=== PATIENT | male | born 1950 | race Caucasian/White ===

== ENCOUNTER 2018-09-02 12:23 | Inpatient (IN) | payer OTHER, MEDICARE ==
[2018-09-02] MEDS ORDERED: Sodium Chloride 0.9% 10 ML Syringe FLUSH PRN (12:42)
[2018-09-02] MEDS ORDERED: Ketorolac 30 MG/ML SDV IVPUSH ONE (12:44)
[2018-09-02] MEDS ORDERED: Sodium Chloride 0.9% 1,000 ML IV SCH (12:45)
--- NOTE | 2018-09-02 14:01 | CR ---
Chest: Two views of the chest were obtained. Comparison: No prior chest x-ray. Heart size and mediastinum are normal. Lungs are clear with no acute parenchymal change. Slight degenerative change is scattered within the spine. Impression: 1. Nothing acute is seen on two-view chest x-ray. Diagnostic code #2
[2018-09-02] MEDS ORDERED: cefTRIAXone 2 GM in Sodium Chloride 0.9% 100 ML IV ONE ×2 (15:08→15:22)
[2018-09-02] MEDS ORDERED: Sodium Chloride 0.9% 1,000 ML IV ONE (15:10)
--- NOTE | 2018-09-02 15:37 | EDM.PDOC ---
ED HPI GENERAL MEDICAL PROBLEM - General Chief Complaint: Fever Stated Complaint: SEPTIC FROM [facility] Time Seen by Provider: 09/02/18 12:35 Source of Information: Reports: Patient History Limitations: Reports: No Limitations - History of Present Illness INITIAL COMMENTS - FREE TEXT/NARRATIVE: The patient presents with fever, chills, shivering, dysuria, urgency and a cough. The cough was there a few days ago with a sore throat. He had a prostate biopsy done yesterday at [facility] in [place] by Dr French. He had cipro the day before, the day of the procedure and then today. 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 He had some body aches, chills, rigors and fever. He has some urgency and dysuria. He denies chest pain, shortness of breath, abdominal pain, nausea or vomiting. He has been exposed to viral URI by family but not influenza. Onset: Sudden Duration: Hour(s): Location: Reports: Generalized Quality: Reports: Ache Severity: Mild Improves with: Reports: None Worsens with: Reports: None Associated Symptoms: Reports: Cough, Fever/Chills. Denies: Chest Pain, Headaches, Nausea/Vomiting, Shortness of Breath - Related Data Allergies Allergy/AdvReac Type Severity Reaction Status Date / Time ivp dye Allergy Rash Uncoded 09/02/18 12:33 Home Meds: Home Meds Olmesartan Medoxomil 20 mg PO DAILY 09/02/18 [History] Rosuvastatin Calcium 1 dose PO DAILY 09/02/18 [History] Tamsulosin HCl 0.4 mg PO DAILY 09/02/18 [History] Timolol Maleate 1 applic EYEBOTH DAILY 09/02/18 [History] Past Medical History HEENT History: Reports: Impaired Vision Cardiovascular History: Reports: Hypertension Oncologic (Cancer) History: Reports: Prostate - Past Surgical History GI Surgical History: Reports: Appendectomy Male Surgical History: Reports: Prostate Biopsy Other Male Surgeries/Procedures: prostate cancer Social & Family History - Family History Family Medical History: Noncontributory - Tobacco Use Smoking Status *Q: Never Smoker - Caffeine Use Caffeine Use: Reports: Coffee - Recreational Drug Use Recreational Drug Use: No ED ROS GENERAL - Review of Systems Review Of Systems: See Below Constitutional: Reports: Fever, Chills, Malaise, Weakness, Fatigue HEENT: Reports: Throat Pain Respiratory: Reports: Cough. Denies: Shortness of Breath Cardiovascular: Reports: No Symptoms Endocrine: Reports: No Symptoms GI/Abdominal: Reports: No Symptoms : Reports: Dysuria, Urgency Musculoskeletal: Reports: Muscle Pain ED EXAM, SEPSIS - Physical Exam Exam: See Below Exam Limited By: No Limitations General Appearance: Alert, No Apparent Distress Ears: Normal External Exam Nose: Normal Inspection Throat/Mouth: Normal Inspection Head: Atraumatic, Normocephalic Neck: Normal Inspection, Supple, Non-Tender Respiratory/Chest: No Respiratory Distress, Lungs Clear, Normal Breath Sounds Cardiovascular: Regular Rate, Rhythm, No Edema, No Murmur GI/Abdominal Exam: Soft, Non-Tender, No Organomegaly, No Mass Extremities: Normal Inspection Neurological: Alert, Oriented, No Motor/Sensory Deficits Course - Vital Signs Last Recorded V/S: Last Vital Signs Temp 99.7 F 09/02/18 12:39 Pulse 106 H 09/02/18 12:25 Resp 18 09/02/18 12:25 BP 161/92 H 09/02/18 12:25 Pulse Ox 100 09/02/18 12:25 - Orders/Labs/Meds Orders: Active Orders 24 hr Category Date Time Status Patient Status [ADT] Routine ADT 09/02/18 15:56 Ordered Peripheral IV Care [RC] . DIRECTED Care 09/02/18 12:43 Active CULTURE BLOOD [BC] Stat Lab 09/02/18 13:14 Received CULTURE BLOOD [BC] Stat Lab 09/02/18 13:29 Received CULTURE URINE [RM] Stat Lab 09/02/18 14:59 Ordered Sodium Chloride 0.9% [Normal Saline] 1,000 ml Med 09/02/18 12:45 Active IV ASDIRECTED Sodium Chloride 0.9% [Normal Saline] 1,000 ml Med 09/02/18 15:10 Active IV ONETIME Sodium Chloride 0.9% [Saline Flush] Med 09/02/18 12:42 Active 10 ml FLUSH ASDIRECTED PRN Blood Culture x2 Reflex Set [OM.PC] Stat Oth 09/02/18 12:42 Ordered Peripheral IV Insertion Adult [OM.PC] Stat Oth 09/02/18 12:42 Ordered Medication Orders Sodium Chloride (Normal Saline) 1,000 mls @ 1,000 mls/hr IV ASDIRECTED LORI Last Admin: 09/02/18 13:19 Dose: 1,000 mls/hr Sodium Chloride (Normal Saline) 1,000 mls @ 200 mls/hr IV ONETIME ONE Stop: 09/02/18 20:09 Last Admin: 09/02/18 15:26 Dose: 200 mls/hr Sodium Chloride (Saline Flush) 10 ml FLUSH ASDIRECTED PRN PRN Reason: Keep Vein Open Last Admin: 09/02/18 13:19 Dose: 10 ml Labs: Laboratory Tests 09/02/18 09/02/18 09/02/18 Range/Units 13:14 13:14 13:14 WBC 7.34 (4.23-9.07) K/mm3 RBC 4.45 L (4.63-6.08) M/mm3 Hgb 14.6 (13.7-17.5) gm/L Hct 42.0 (40.1-51.0) % MCV 94.4 H (79.0-92.2) fl MCH 32.8 H (25.7-32.2) pg MCHC 34.8 (32.2-35.5) g/dl RDW Std Deviation 42.1 (35.1-43.9) fL Plt Count 135 L (163-337) K/mm3 MPV 9.4 (9.4-12.3) fl Neut % (Auto) 89.6 H (34.0-67.9) % Lymph % (Auto) 5.7 L (21.8-53.1) % Benzie % (Auto) 2.0 L (5.3-12.2) % Eos % (Auto) 2.6 (0.8-7.0) Baso % (Auto) 0.1 (0.1-1.2) % Neut # (Auto) 6.57 H (1.78-5.38) K/mm3 Lymph # (Auto) 0.42 L (1.32-3.57) K/mm3 Benzie # (Auto) 0.15 L (0.30-0.82) K/mm3 Eos # (Auto) 0.19 (0.04-0.54) K/mm3 Baso # (Auto) 0.01 (0.01-0.08) K/mm3 Sodium 138 (136-145) mEq/L Potassium 4.3 (3.5-5.1) mEq/L Chloride 103 (98-107) mEq/L Carbon Dioxide 26 (21-32) mEq/L Anion Gap 13.3 (5-15) BUN 16 (7-18) mg/dL Creatinine 1.2 (0.7-1.3) mg/dL Est Cr Clr Drug Dosing 61.01 mL/min Estimated GFR (MDRD) 60 (>60) mL/min BUN/Creatinine Ratio 13.3 L (14-18) Glucose 93 (80-115) mg/dL Lactic Acid 2.1 H (0.4-2.0) mmol/L Calcium 9.0 (8.5-10.1) mg/dL Total Bilirubin 0.6 (0.2-1.0) mg/dL AST 22 (15-37) U/L ALT 25 (16-63) U/L Alkaline Phosphatase 51 (46-116) U/L C-Reactive Protein (<1.0) mg/dL Total Protein 7.4 (6.4-8.2) g/dl Albumin 3.8 (3.4-5.0) g/dl Globulin 3.6 gm/dL Albumin/Globulin Ratio 1.1 (1-2) Urine Color (Yellow) Urine Appearance (Clear) Urine pH (5.0-8.0) Ur Specific [place] (1.005-1.030) Urine Protein (Negative) Urine Glucose (UA) (Negative) Urine Ketones (Negative) Urine Occult Blood (Negative) Urine Nitrite (Negative) Urine Bilirubin (Negative) Urine Urobilinogen (0.2-1.0) Ur Leukocyte Esterase (Negative) Urine RBC (0-5) /hpf Urine WBC (0-5) /hpf Ur Epithelial Cells (0-5) /hpf Urine Bacteria (FEW) /hpf Urine Mucus (FEW) /hpf 09/02/18 09/02/18 Range/Units 13:14 13:59 WBC (4.23-9.07) K/mm3 RBC (4.63-6.08) M/mm3 Hgb (13.7-17.5) gm/L Hct (40.1-51.0) % MCV (79.0-92.2) fl MCH (25.7-32.2) pg MCHC (32.2-35.5) g/dl RDW Std Deviation (35.1-43.9) fL Plt Count (163-337) K/mm3 MPV (9.4-12.3) fl Neut % (Auto) (34.0-67.9) % Lymph % (Auto) (21.8-53.1) % Benzie % (Auto) (5.3-12.2) % Eos % (Auto) (0.8-7.0) Baso % (Auto) (0.1-1.2) % Neut # (Auto) (1.78-5.38) K/mm3 Lymph # (Auto) (1.32-3.57) K/mm3 Benzie # (Auto) (0.30-0.82) K/mm3 Eos # (Auto) (0.04-0.54) K/mm3 Baso # (Auto) (0.01-0.08) K/mm3 Sodium (136-145) mEq/L Potassium (3.5-5.1) mEq/L Chloride (98-107) mEq/L Carbon Dioxide (21-32) mEq/L Anion Gap (5-15) BUN (7-18) mg/dL Creatinine (0.7-1.3) mg/dL Est Cr Clr Drug Dosing mL/min Estimated GFR (MDRD) (>60) mL/min BUN/Creatinine Ratio (14-18) Glucose (80-115) mg/dL Lactic Acid (0.4-2.0) mmol/L Calcium (8.5-10.1) mg/dL Total Bilirubin (0.2-1.0) mg/dL AST (15-37) U/L ALT (16-63) U/L Alkaline Phosphatase (46-116) U/L C-Reactive Protein 1.1 H* (<1.0) mg/dL Total Protein (6.4-8.2) g/dl Albumin (3.4-5.0) g/dl Globulin gm/dL Albumin/Globulin Ratio (1-2) Urine Color Yellow (Yellow) Urine Appearance Clear (Clear) Urine pH 7.0 (5.0-8.0) Ur Specific [place] 1.015 (1.005-1.030) Urine Protein Trace H (Negative) Urine Glucose (UA) Negative (Negative) Urine Ketones Negative (Negative) Urine Occult Blood 2+ H (Negative) Urine Nitrite Negative (Negative) Urine Bilirubin Negative (Negative) Urine Urobilinogen 0.2 (0.2-1.0) Ur Leukocyte Esterase Trace H (Negative) Urine RBC 10-20 H (0-5) /hpf Urine WBC 10-20 H (0-5) /hpf Ur Epithelial Cells 0-5 (0-5) /hpf Urine Bacteria Few (FEW) /hpf Urine Mucus Not seen (FEW) /hpf Meds: Medications Generic Name Dose Route Start Last Admin Trade Name Freq PRN Reason Stop Dose Admin Sodium Chloride 1,000 mls @ 1,000 mls/hr 09/02/18 12:45 09/02/18 13:19 Normal Saline IV 1,000 mls/hr ASDIRECTED LORI Administration Sodium Chloride 1,000 mls @ 200 mls/hr 09/02/18 15:10 09/02/18 15:26 Normal Saline IV 09/02/18 20:09 200 mls/hr ONETIME ONE Administration Sodium Chloride 10 ml 09/02/18 12:42 09/02/18 13:19 Saline Flush FLUSH 10 ml ASDIRECTED PRN Administration Keep Vein Open Discontinued Medications Generic Name Dose Route Start Last Admin Trade Name Freq PRN Reason Stop Dose Admin Ceftriaxone Sodium 2 gm/ 100 mls @ 200 mls/hr 09/02/18 15:08 Sodium Chloride IV 09/02/18 15:37 ONETIME ONE Ceftriaxone Sodium 2 gm/ 100 mls @ 200 mls/hr 09/02/18 15:22 09/02/18 15:27 Sodium Chloride IV 09/02/18 15:51 200 mls/hr ONETIME ONE Administration Ketorolac Tromethamine 30 mg 09/02/18 12:44 09/02/18 13:20 Toradol IVPUSH 09/02/18 12:45 30 mg ONETIME ONE Administration - Re-Assessments/Exams Free Text/Narrative Re-Assessment/Exam: 09/02/18 15:37 I ordered an IV NS 1L bolus, blood cultures, UA, labs, CXR, influenza and toradol 30mg IV. His CXR looks good. His WBC is normal at 7.34 but he does have a predominance of neutrophils at 89.6%. His CRP was elevated at 1.1. His lactic acid was elevated at 2.1. His UA shows a possible UTI. I have ordered a urine culture. I also ordered rocephin 2 grams IV. His influenza was negative. I feel he needs to be admitted. His lactic acid is slightly elevated at 2.1. I will give him more fluids and I will recheck the lactic acid. I called Dr Lamb and she agreed to the admission. Dr Lamb wanted me to call the urologist and see what he recommends. I called [facility] and talked with the urologist semiconductor technician Dr Blackmon and he did agree with the rocephin. The patient had cipro and it is curious he still got an infection. Departure - Departure Time of Disposition: 15:45 Disposition: Admitted As Inpatient 64 Condition: Fair Clinical Impression: Acute prostatitis UTI (urinary tract infection) Qualifiers: Urinary tract infection type: site unspecified Hematuria presence: without hematuria Qualified Code(s): N39.0 - Urinary tract infection, site not specified - Discharge Information Referrals: Reese Gay MD [Primary Care Provider] - Forms: ED Department Discharge - My Orders Last 24 Hours: My Active Orders 09/02/18 12:42 Sodium Chloride 0.9% [Saline Flush] 10 ml FLUSH ASDIRECTED PRN Blood Culture x2 Reflex Set [OM.PC] Stat Peripheral IV Insertion Adult [OM.PC] Stat 09/02/18 12:43 Peripheral IV Care [RC] . DIRECTED 09/02/18 12:45 Sodium Chloride 0.9% [Normal Saline] 1,000 ml IV ASDIRECTED 09/02/18 13:14 CULTURE BLOOD [BC] Stat 09/02/18 13:29 CULTURE BLOOD [BC] Stat 09/02/18 14:59 CULTURE URINE [RM] Stat 09/02/18 15:10 Sodium Chloride 0.9% [Normal Saline] 1,000 ml IV ONETIME 09/02/18 15:56 Patient Status [ADT] Routine - Assessment/Plan Last 24 Hours: My Active Orders 09/02/18 12:42 Sodium Chloride 0.9% [Saline Flush] 10 ml FLUSH ASDIRECTED PRN Blood Culture x2 Reflex Set [OM.PC] Stat Peripheral IV Insertion Adult [OM.PC] Stat 09/02/18 12:43 Peripheral IV Care [RC] . DIRECTED 09/02/18 12:45 Sodium Chloride 0.9% [Normal Saline] 1,000 ml IV ASDIRECTED 09/02/18 13:14 CULTURE BLOOD [BC] Stat 09/02/18 13:29 CULTURE BLOOD [BC] Stat 09/02/18 14:59 CULTURE URINE [RM] Stat 09/02/18 15:10 Sodium Chloride 0.9% [Normal Saline] 1,000 ml IV ONETIME 09/02/18 15:56 Patient Status [ADT] Routine
[2018-09-02] MEDS ORDERED: Ondansetron 4 MG Tab.DIS PO PRN (16:34)
[2018-09-02] MEDS ORDERED: Ketorolac 30 MG/ML SDV IV PRN (16:34)
[2018-09-02] MEDS ORDERED: Ondansetron 4 MG/2 ML SDV IV PRN (16:34)
[2018-09-02] MEDS ORDERED: Albuterol 0.083% 2.5 MG/3 ML Neb Soln NEB PRN (16:34)
[2018-09-02] MEDS ORDERED: Bisacodyl 5 MG Tab PO PRN (16:40)
[2018-09-02] MEDS ORDERED: Polyethylene Glycol 3350 Powder 17 GM Packet PO PRN (16:40)
[2018-09-02] MEDS ORDERED: Magnesium Hydroxide 400 MG/5 ML Susp 30 ML Cup PO PRN (16:40)
[2018-09-02] MEDS ORDERED: Docusate Sodium 100 MG Cap PO PRN (16:40)
[2018-09-02] MEDS ORDERED: Temazepam 7.5 MG Cap PO PRN (16:40)
[2018-09-02] MEDS ORDERED: Benzonatate 100 MG Cap PO PRN (16:41)
[2018-09-02] MEDS ORDERED: hydrALAZINE 20 MG/ML SDV IVPUSH PRN (16:42)
[2018-09-02] MEDS ORDERED: Metoprolol Tartrate 5 MG/5 ML SDV IVPUSH PRN (16:42)
--- NOTE | 2018-09-02 17:16 | PCM.HP ---
H&P History of Present Illness - General Date of Service: 09/02/18 Admit Problem/Dx: Admission Diagnosis/Problem Admission Diagnosis/Problem UTI, Urinary tract infectious disease Source of Information: Patient, Provider History Limitations: Reports: No Limitations - History of Present Illness Initial Comments - Free Text/Narative: This is a 68 yo male with past medical h/o who comes in for acute prostatitis and possible UTI. Pt c/o F/C, body aches, dysuria/urgency, cough and sore throat x 3 days. He denies EPPS, dizziness, CP, shortness of breath, abdominal pain, N/V/D, or other GI/ complaints. Does have sick contacts with viral URI but not influenza. He had a prostate biopsy done yesterday at [facility] in [place] by Dr French. He had Cipro the day before, the day of the procedure and then today. His initial workup in the ED shows a CBC remarkable for RBC 4.45, MCV 94.4, MCH 32.8, Plt 135, Neut 89.6%, lymph 5.7%, [place] 2%. His chemistry is remarkable for LA 2.1, CRP 1.1. UTI suspicious for UTI. Urine culture pending. CXR shows nothing acute. Influenza negative. He is subsequently admitted to the medical floor. He is a Full Code. PCP is Dr. Fernandez. - Related Data Allergies/Adverse Reactions: Allergies Allergy/AdvReac Type Severity Reaction Status Date / Time ivp dye Allergy Rash Uncoded 09/02/18 17:01 Home Medications: Home Meds Olmesartan Medoxomil 20 mg PO DAILY 09/02/18 [History] Rosuvastatin Calcium 1 dose PO DAILY 09/02/18 [History] Tamsulosin HCl 0.4 mg PO DAILY 09/02/18 [History] Timolol Maleate 1 applic EYEBOTH DAILY 09/02/18 [History] Past Medical History HEENT History: Reports: Impaired Vision Cardiovascular History: Reports: Hypertension Oncologic (Cancer) History: Reports: Prostate - Past Surgical History GI Surgical History: Reports: Appendectomy Male Surgical History: Reports: Prostate Biopsy Other Male Surgeries/Procedures: prostate cancer Social & Family History - Family History Family Medical History: Noncontributory - Tobacco Use Smoking Status *Q: Never Smoker - Caffeine Use Caffeine Use: Reports: Coffee - Recreational Drug Use Recreational Drug Use: No H&P Review of Systems - Review of Systems: Review Of Systems: See Below General: Reports: Fever, Chills, Malaise, Weakness, Fatigue HEENT: Reports: Sore Throat Pulmonary: Reports: Cough. Denies: Shortness of Breath, Sputum Cardiovascular: Reports: Blood Pressure Problem. Denies: Chest Pain Gastrointestinal: Reports: No Symptoms. Denies: Abdominal Pain, Diarrhea, Nausea, Vomiting Genitourinary: Reports: Dysuria, Urgency. Denies: Frequency, Hematuria Musculoskeletal: Reports: Muscle Pain Skin: Reports: No Symptoms Psychiatric: Reports: No Symptoms Neurological: Reports: No Symptoms Hematologic/Lymphatic: Reports: No Symptoms Immunologic: Reports: No Symptoms Exam - Exam Exam: See Below - Vital Signs Vital Signs: Last Vital Signs Temp 99.7 F 09/02/18 12:39 Pulse 99 09/02/18 16:50 Resp 16 09/02/18 16:50 BP 146/81 H 09/02/18 16:50 Pulse Ox 98 09/02/18 16:50 Weight: 219 lb - Exam Quality Assessment: DVT Prophylaxis General: Alert, Oriented, Cooperative, Mild Distress HEENT: Conjunctiva Clear, EACs Clear, EOMI, Hearing Intact, Mucosa Moist & [place] , Nares Patent, Normal Nasal Septum, Posterior Pharynx Clear, PERRLA Neck: Supple, Trachea Midline, 2 Lungs: Clear to Auscultation, Normal Respiratory Effort Cardiovascular: Regular Rate, Regular Rhythm GI/Abdominal Exam: Normal Bowel Sounds, Soft, Non-Tender, No Organomegaly, No Distention, No Abnormal Bruit, No Mass, Pelvis Stable (Male) Exam: Deferred Rectal (Males) Exam: Deferred Back Exam: Normal Inspection Extremities: Normal Inspection, Normal Range of Motion, Non-Tender, No Pedal Edema, Normal Capillary Refill Peripheral Pulses: 3+: Posterior Tibial (L), Posterior Tibial (R), Dorsalis Pedis (L), Dorsalis Pedis (R) Skin: Warm, Dry, Intact Neurological: Cranial Nerves Intact (grossly) Psychiatric: Alert, Normal Affect, Normal Mood - Patient Data Lab Results Last 24 hrs: Laboratory Results - last 24 hr 09/02/18 09/02/18 09/02/18 Range/Units 13:14 13:14 13:14 WBC 7.34 (4.23-9.07) K/mm3 RBC 4.45 L (4.63-6.08) M/mm3 Hgb 14.6 (13.7-17.5) gm/L Hct 42.0 (40.1-51.0) % MCV 94.4 H (79.0-92.2) fl MCH 32.8 H (25.7-32.2) pg MCHC 34.8 (32.2-35.5) g/dl RDW Std Deviation 42.1 (35.1-43.9) fL Plt Count 135 L (163-337) K/mm3 MPV 9.4 (9.4-12.3) fl Neut % (Auto) 89.6 H (34.0-67.9) % Lymph % (Auto) 5.7 L (21.8-53.1) % [place] % (Auto) 2.0 L (5.3-12.2) % Eos % (Auto) 2.6 (0.8-7.0) Baso % (Auto) 0.1 (0.1-1.2) % Neut # (Auto) 6.57 H (1.78-5.38) K/mm3 Lymph # (Auto) 0.42 L (1.32-3.57) K/mm3 [place] # (Auto) 0.15 L (0.30-0.82) K/mm3 Eos # (Auto) 0.19 (0.04-0.54) K/mm3 Baso # (Auto) 0.01 (0.01-0.08) K/mm3 Sodium 138 (136-145) mEq/L Potassium 4.3 (3.5-5.1) mEq/L Chloride 103 (98-107) mEq/L Carbon Dioxide 26 (21-32) mEq/L Anion Gap 13.3 (5-15) BUN 16 (7-18) mg/dL Creatinine 1.2 (0.7-1.3) mg/dL Est Cr Clr Drug Dosing 61.01 mL/min Estimated GFR (MDRD) 60 (>60) mL/min BUN/Creatinine Ratio 13.3 L (14-18) Glucose 93 (80-115) mg/dL Lactic Acid 2.1 H (0.4-2.0) mmol/L Calcium 9.0 (8.5-10.1) mg/dL Total Bilirubin 0.6 (0.2-1.0) mg/dL AST 22 (15-37) U/L ALT 25 (16-63) U/L Alkaline Phosphatase 51 (46-116) U/L C-Reactive Protein (<1.0) mg/dL Total Protein 7.4 (6.4-8.2) g/dl Albumin 3.8 (3.4-5.0) g/dl Globulin 3.6 gm/dL Albumin/Globulin Ratio 1.1 (1-2) Urine Color (Yellow) Urine Appearance (Clear) Urine pH (5.0-8.0) Ur Specific [place] (1.005-1.030) Urine Protein (Negative) Urine Glucose (UA) (Negative) Urine Ketones (Negative) Urine Occult Blood (Negative) Urine Nitrite (Negative) Urine Bilirubin (Negative) Urine Urobilinogen (0.2-1.0) Ur Leukocyte Esterase (Negative) Urine RBC (0-5) /hpf Urine WBC (0-5) /hpf Ur Epithelial Cells (0-5) /hpf Urine Bacteria (FEW) /hpf Urine Mucus (FEW) /hpf 09/02/18 09/02/18 Range/Units 13:14 13:59 WBC (4.23-9.07) K/mm3 RBC (4.63-6.08) M/mm3 Hgb (13.7-17.5) gm/L Hct (40.1-51.0) % MCV (79.0-92.2) fl MCH (25.7-32.2) pg MCHC (32.2-35.5) g/dl RDW Std Deviation (35.1-43.9) fL Plt Count (163-337) K/mm3 MPV (9.4-12.3) fl Neut % (Auto) (34.0-67.9) % Lymph % (Auto) (21.8-53.1) % [place] % (Auto) (5.3-12.2) % Eos % (Auto) (0.8-7.0) Baso % (Auto) (0.1-1.2) % Neut # (Auto) (1.78-5.38) K/mm3 Lymph # (Auto) (1.32-3.57) K/mm3 [place] # (Auto) (0.30-0.82) K/mm3 Eos # (Auto) (0.04-0.54) K/mm3 Baso # (Auto) (0.01-0.08) K/mm3 Sodium (136-145) mEq/L Potassium (3.5-5.1) mEq/L Chloride (98-107) mEq/L Carbon Dioxide (21-32) mEq/L Anion Gap (5-15) BUN (7-18) mg/dL Creatinine (0.7-1.3) mg/dL Est Cr Clr Drug Dosing mL/min Estimated GFR (MDRD) (>60) mL/min BUN/Creatinine Ratio (14-18) Glucose (80-115) mg/dL Lactic Acid (0.4-2.0) mmol/L Calcium (8.5-10.1) mg/dL Total Bilirubin (0.2-1.0) mg/dL AST (15-37) U/L ALT (16-63) U/L Alkaline Phosphatase (46-116) U/L C-Reactive Protein 1.1 H* (<1.0) mg/dL Total Protein (6.4-8.2) g/dl Albumin (3.4-5.0) g/dl Globulin gm/dL Albumin/Globulin Ratio (1-2) Urine Color Yellow (Yellow) Urine Appearance Clear (Clear) Urine pH 7.0 (5.0-8.0) Ur Specific [place] 1.015 (1.005-1.030) Urine Protein Trace H (Negative) Urine Glucose (UA) Negative (Negative) Urine Ketones Negative (Negative) Urine Occult Blood 2+ H (Negative) Urine Nitrite Negative (Negative) Urine Bilirubin Negative (Negative) Urine Urobilinogen 0.2 (0.2-1.0) Ur Leukocyte Esterase Trace H (Negative) Urine RBC 10-20 H (0-5) /hpf Urine WBC 10-20 H (0-5) /hpf Ur Epithelial Cells 0-5 (0-5) /hpf Urine Bacteria Few (FEW) /hpf Urine Mucus Not seen (FEW) /hpf Result Diagrams: 09/02/18 13:14 09/02/18 13:14 Anshu Results Last 24 hrs: Microbiology 09/02/18 12:30 Influenza Type A Antigen Screen - Final Nasal, Unspecified NEGATIVE INFLUENZA A VIRUS AG Influenza Type B Antigen Screen - Final NEGATIVE INFLUENZA B VIRUS AG - Problem List (1) Acute prostatitis SNOMED Code(s): 02408976 ICD Code: N41.0 - ACUTE PROSTATITIS Status: Acute Priority: High Current Visit: Yes (2) UTI (urinary tract infection) SNOMED Code(s): 58711776 ICD Code: N39.0 - URINARY TRACT INFECTION, SITE NOT SPECIFIED Status: Acute Priority: High Current Visit: Yes Qualifiers: Urinary tract infection type: site unspecified Hematuria presence: without hematuria Qualified Code(s): N39.0 - Urinary tract infection, site not specified Problem List Initiated/Reviewed/Updated: Yes Orders Last 24hrs: Active Orders 24 hr Category Date Time Status Patient Status [ADT] Routine ADT 09/02/18 15:56 Active Height and Weight [RC] DAILY Care 09/02/18 16:34 Active Intake and Output [RC] QSHIFT Care 09/02/18 16:34 Active May Shower [RC] ASDIRECTED Care 09/02/18 16:34 Active Oxygen Therapy [RC] PRN Care 09/02/18 16:34 Active Peripheral IV Care [RC] . DIRECTED Care 09/02/18 12:43 Active RT Aerosol Therapy [RC] ASDIRECTED Care 09/02/18 16:36 Active Up ad Nolvia [RC] ASDIRECTED Care 09/02/18 16:34 Active VTE/DVT Education [RC] PER UNIT ROUTINE Care 09/02/18 16:34 Active Vital Signs [RC] Q4H Care 09/02/18 16:34 Active OT Evaluation and Treatment [CONS] Routine Cons 09/02/18 16:34 Active PT Evaluation and Treatment [CONS] Routine Cons 09/02/18 16:34 Active Heart Healthy Diet [DIET] Diet 09/02/18 Dinner Active BASIC METABOLIC PANEL,BMP [CHEM] AM Lab 09/03/18 05:11 Ordered BASIC METABOLIC PANEL,BMP [CHEM] AM Lab 09/04/18 05:11 Ordered BASIC METABOLIC PANEL,BMP [CHEM] AM Lab 09/05/18 05:11 Ordered BASIC METABOLIC PANEL,BMP [CHEM] AM Lab 09/06/18 05:11 Ordered BASIC METABOLIC PANEL,BMP [CHEM] AM Lab 09/07/18 05:11 Ordered C-REACTIVE PROTEIN [CHEM] AM Lab 09/03/18 05:11 Ordered C-REACTIVE PROTEIN [CHEM] AM Lab 09/04/18 05:11 Ordered C-REACTIVE PROTEIN [CHEM] AM Lab 09/05/18 05:11 Ordered C-REACTIVE PROTEIN [CHEM] AM Lab 09/06/18 05:11 Ordered C-REACTIVE PROTEIN [CHEM] AM Lab 09/07/18 05:11 Ordered CBC WITH AUTO DIFF [HEME] AM Lab 09/03/18 05:11 Ordered CBC WITH AUTO DIFF [HEME] AM Lab 09/04/18 05:11 Ordered CBC WITH AUTO DIFF [HEME] AM Lab 09/05/18 05:11 Ordered CBC WITH AUTO DIFF [HEME] AM Lab 09/06/18 05:11 Ordered CBC WITH AUTO DIFF [HEME] AM Lab 09/07/18 05:11 Ordered CULTURE BLOOD [BC] Stat Lab 09/02/18 13:14 Received CULTURE BLOOD [BC] Stat Lab 09/02/18 13:29 Received CULTURE URINE [RM] Stat Lab 09/02/18 13:59 Received LACTIC ACID [CHEM] Routine Lab 09/02/18 17:15 Ordered MAGNESIUM [CHEM] AM Lab 09/03/18 05:11 Ordered MAGNESIUM [CHEM] AM Lab 09/04/18 05:11 Ordered MAGNESIUM [CHEM] AM Lab 09/05/18 05:11 Ordered MAGNESIUM [CHEM] AM Lab 09/06/18 05:11 Ordered MAGNESIUM [CHEM] AM Lab 09/07/18 05:11 Ordered MYCOPLASMA PNEUMONIAE IGM AB [CHEM] Stat Lab 09/02/18 13:14 Received Acetaminophen [Tylenol] Med 09/02/18 16:34 Active 650 mg PO Q4H PRN Albuterol [Proventil Neb Soln] Med 09/02/18 16:34 Active 2.5 mg NEB Q2H PRN Albuterol/Ipratropium [DuoNeb 3.0-0.5 MG/3 ML] Med 09/02/18 16:34 Active 3 ml NEB Q4H PRN Benzonatate [Tessalon Perles] Med 09/02/18 16:41 Active 200 mg PO TID PRN Bisacodyl [Dulcolax] Med 09/02/18 16:40 Active 5 mg PO DAILY PRN Docusate Sodium [Colace] Med 09/02/18 16:40 Active 100 mg PO BID PRN Docusate Sodium/Sennosides [Senna Plus] Med 09/02/18 16:40 Active 1 tab PO BID PRN Enoxaparin [Lovenox] Med 09/03/18 09:00 Active 40 mg SUBCUT DAILY Ketorolac [Toradol] Med 09/02/18 16:34 Active 30 mg IV Q6H PRN Losartan [Cozaar] Med 09/03/18 09:00 Active 50 mg PO DAILY Magnesium Hydroxide [Milk of Magnesia] Med 09/02/18 16:40 Active 30 ml PO Q12H PRN Metoprolol Tartrate [Lopressor] Med 09/02/18 16:42 Active 5 mg IVPUSH Q4H PRN Ondansetron [Zofran ODT] Med 09/02/18 16:34 Active 4 mg PO Q4H PRN Ondansetron [Zofran] Med 09/02/18 16:34 Active 4 mg IV Q4H PRN Polyethylene Glycol 3350 [MiraLAX] Med 09/02/18 16:40 Active 17 gm PO DAILY PRN Rosuvastatin [Crestor] Med 09/03/18 09:00 Active 10 mg PO DAILY Saccharomyces Boulardii [Florastor] Med 09/02/18 21:00 Active 250 mg PO BID Sodium Chloride 0.9% [Normal Saline] 1,000 ml Med 09/02/18 12:45 Active IV ASDIRECTED Sodium Chloride 0.9% [Normal Saline] 1,000 ml Med 09/02/18 15:10 Active IV ONETIME Sodium Chloride 0.9% [Saline Flush] Med 09/02/18 12:42 Active 10 ml FLUSH ASDIRECTED PRN Tamsulosin [Flomax] Med 09/03/18 09:00 Active 0.4 mg PO DAILY Temazepam [Restoril] Med 09/02/18 16:40 Active 7.5 mg PO BEDTIME PRN Timolol Maleate [Timoptic 0.5% Ophth Soln] Med 09/03/18 09:00 Active 0 ml EYEBOTH DAILY cefTRIAXone [Rocephin] 2 gm Med 09/03/18 09:00 Active Sodium Chloride 0.9% [Normal Saline] 100 ml IV Q24H hydrALAZINE [Apresoline] Med 09/02/18 16:42 Active 10 mg IVPUSH Q4H PRN Blood Culture x2 Reflex Set [OM.PC] Stat Oth 09/02/18 12:42 Ordered Peripheral IV Insertion Adult [OM.PC] Stat Ot 09/02/18 12:42 Ordered Medication Orders Acetaminophen (Tylenol) 650 mg PO Q4H PRN PRN Reason: Pain (Mild 1-3)/fever Albuterol (Proventil Neb Soln) 2.5 mg NEB Q2H PRN PRN Reason: Shortness Of Breath/wheezing Albuterol/Ipratropium (Duoneb 3.0-0.5 Mg/3 Ml) 3 ml NEB Q4H PRN PRN Reason: Shortness Of Breath/wheezing Benzonatate (Tessalon Perles) 200 mg PO TID PRN PRN Reason: Cough Bisacodyl (Dulcolax) 5 mg PO DAILY PRN PRN Reason: Constipation Docusate Sodium (Colace) 100 mg PO BID PRN PRN Reason: Constipation Enoxaparin Sodium (Lovenox) 40 mg SUBCUT DAILY [facility] Hydralazine HCl (Apresoline) 10 mg IVPUSH Q4H PRN PRN Reason: Hypertension Sodium Chloride (Normal Saline) 1,000 mls @ 1,000 mls/hr IV ASDIRECTED [facility] Last Admin: 09/02/18 13:19 Dose: 1,000 mls/hr Sodium Chloride (Normal Saline) 1,000 mls @ 200 mls/hr IV ONETIME ONE Stop: 09/02/18 20:09 Last Admin: 09/02/18 15:26 Dose: 200 mls/hr Ceftriaxone Sodium 2 gm/ (Sodium Chloride) 100 mls @ 200 mls/hr IV Q24H [facility] Ketorolac Tromethamine (Toradol) 30 mg IV Q6H PRN PRN Reason: Pain (moderate 4-6) Losartan Potassium (Cozaar) 50 mg PO DAILY [facility] Magnesium Hydroxide (Milk Of Magnesia) 30 ml PO Q12H PRN PRN Reason: Constipation Metoprolol Tartrate (Lopressor) 5 mg IVPUSH Q4H PRN PRN Reason: Tachycardia Ondansetron HCl (Zofran Odt) 4 mg PO Q4H PRN PRN Reason: nausea, able to take PO Ondansetron HCl (Zofran) 4 mg IV Q4H PRN PRN Reason: Nausea/Vomiting Polyethylene Glycol (Miralax) 17 gm PO DAILY PRN PRN Reason: Constipation Rosuvastatin Calcium (Crestor) 10 mg PO DAILY [facility] Saccharomyces Boulardii (Florastor) 250 mg PO BID [facility] Senna/Docusate Sodium (Senna Plus) 1 tab PO BID PRN PRN Reason: Constipation Sodium Chloride (Saline Flush) 10 ml FLUSH ASDIRECTED PRN PRN Reason: Keep Vein Open Last Admin: 09/02/18 13:19 Dose: 10 ml Tamsulosin HCl (Flomax) 0.4 mg PO DAILY [facility] Temazepam (Restoril) 7.5 mg PO BEDTIME PRN PRN Reason: Sleep Timolol Maleate (Timoptic 0.5% Ophth Soln) 0 ml EYEBOTH DAILY [facility] Assessment/Plan Comment:: Assessment/Plan: Acute: Acute Prostatitis * F/C, Dysuria/urgency * Risk factor: He had a prostate biopsy done yesterday at [facility] in [place] by Dr French, h/o Prostate CA * However, he had Cipro the day before, the day of the procedure and then today * No leukocytosis, CRP 1.1 * Consulted Urologist operational intelligence analyst Dr. Blackmon at [facility] in ED: * Rocephin started in ED--> continue Possible UTI * Dysuria/urgency * UA suspicious for UTI * Urine culture pending * Treatment as above Cough, Improving * F/C, body aches, cough and sore throat x 3 days * Has had sick contacts with Viral URI, no influenza * No leukocytosis, low grade fever 99.7 in ED, LA 2.1--> 1.4 * CXR shows nothing acute * Influenza, Mycoplasma negative Chronic: HTN Prostate CA Appendectomy Plan: Admit to Medical Floor Droplet/Respiratory precautions IVF Routine AM Labs Heart Healthy diet DVT/GI prophylaxis PT/OT Code Status: Full Code; PCP: Dr. Fernandez
[2018-09-02] MEDS: Saccharomyces Boulardii (Probiotic) 250 MG Cap PO SCH (20:46)
[2018-09-02] MEDS: Famotidine 20 MG Tab PO SCH (20:46)
[2018-09-02] MEDS: Acetaminophen 325 MG Tab PO PRN (20:46)
[2018-09-02] MEDS: Sodium Chloride 0.9% 1,000 ML IV SCH (20:48)
[2018-09-03] MEDS: Acetaminophen 325 MG Tab PO PRN ×4 (01:15→21:27)
[2018-09-03] MEDS: Sodium Chloride 0.9% 1,000 ML IV SCH ×4 (04:06→23:46)
[2018-09-03] MEDS ORDERED: Enoxaparin 40 MG/0.4 ML Syringe SUBCUT SCH (09:00)
[2018-09-03] MEDS ORDERED: cefTRIAXone 2 GM in Sodium Chloride 0.9% 100 ML IV SCH (09:00)
[2018-09-03] MEDS: Famotidine 20 MG Tab PO SCH ×2 (09:51→20:26)
[2018-09-03] MEDS: Tamsulosin 0.4 MG Cap.ER PO SCH (09:51)
[2018-09-03] MEDS: Timolol Maleate 0.5% Ophth Soln 5 ML Bottle EYEBOTH SCH (09:52)
[2018-09-03] MEDS: Saccharomyces Boulardii (Probiotic) 250 MG Cap PO SCH ×2 (09:52→20:26)
[2018-09-03] MEDS: Losartan 25 MG Tab PO SCH ×2 (09:52→09:58)
[2018-09-03] MEDS: Rosuvastatin 10 MG Tab PO SCH (09:52)
[2018-09-03] MEDS ORDERED: Magnesium Sulfate/Water 4 GM in Premix Bag 1 BAG IV ONE (10:00)
--- NOTE | 2018-09-03 15:19 | PCM.PN ---
- General Info Date of Service: 09/03/18 Admission Dx/Problem (Free Text): Admission Diagnosis/Problem Admission Diagnosis/Problem UTI, Urinary tract infectious disease Subjective Update: In to see [place]. He is sitting up in a chair visiting with his . He states he is overall feeling better, but that he is still having fever, rigors, dysuria , urgency, hesitancy and a slight cough. He denies any Chest pain, N/V/D or other GI/Urinary symptoms. Went over that his blood and urine cultures came back as gram negative rods, which Rocephin should cover, but we should get more thorough results on sensitivities soon and will switch Abx if necessary. He and his state they understand. Also Dr. Malone came to see him for his L shoulder. See his report for details. No other concerns from nursing. Will continue treatment with Rocephin. Functional Status: Reports: Pain Controlled, Tolerating Diet, Ambulating, Urinating - Review of Systems General: Reports: Fever (100.5F earlier), Weakness, Fatigue, Malaise, Chills HEENT: Reports: No Symptoms Pulmonary: Reports: Cough (mild). Denies: Shortness of Breath Cardiovascular: Reports: No Symptoms. Denies: Chest Pain Gastrointestinal: Reports: No Symptoms. Denies: Abdominal Pain, Diarrhea, Nausea, Vomiting Genitourinary: Reports: Dysuria, Frequency, Urgency, Other (Hesitancy) Musculoskeletal: Reports: No Symptoms Skin: Reports: No Symptoms Neurological: Reports: No Symptoms Psychiatric: Reports: No Symptoms - Patient Data Vitals - Most Recent: Last Vital Signs Temp 100.6 F 09/03/18 12:48 Pulse 86 09/03/18 12:43 Resp 18 09/03/18 12:43 BP 136/74 09/03/18 12:43 Pulse Ox 95 09/03/18 12:43 Weight - Most Recent: 223 lb 7 oz I&O - Last 24 Hours: Intake & Output 09/03/18 09/03/18 09/03/18 06:59 14:59 22:59 Intake Total 2059 380 Balance 2059 380 Lab Results Last 24 Hours: Laboratory Results - last 24 hr 09/02/18 09/02/18 09/02/18 Range/Units 13:14 13:14 17:00 WBC (4.23-9.07) K/mm3 RBC (4.63-6.08) M/mm3 Hgb (13.7-17.5) gm/L Hct (40.1-51.0) % MCV (79.0-92.2) fl MCH (25.7-32.2) pg MCHC (32.2-35.5) g/dl RDW Std Deviation (35.1-43.9) fL Plt Count (163-337) K/mm3 MPV (9.4-12.3) fl Neut % (Auto) (34.0-67.9) % Lymph % (Auto) (21.8-53.1) % [place] % (Auto) (5.3-12.2) % Eos % (Auto) (0.8-7.0) Baso % (Auto) (0.1-1.2) % Neut # (Auto) (1.78-5.38) K/mm3 Lymph # (Auto) (1.32-3.57) K/mm3 [place] # (Auto) (0.30-0.82) K/mm3 Eos # (Auto) (0.04-0.54) K/mm3 Baso # (Auto) (0.01-0.08) K/mm3 Manual Slide Review Sodium (136-145) mEq/L Potassium (3.5-5.1) mEq/L Chloride (98-107) mEq/L Carbon Dioxide (21-32) mEq/L Anion Gap (5-15) BUN (7-18) mg/dL Creatinine (0.7-1.3) mg/dL Est Cr Clr Drug Dosing mL/min Estimated GFR (MDRD) (>60) mL/min BUN/Creatinine Ratio (14-18) Glucose (80-115) mg/dL Lactic Acid 1.4 (0.4-2.0) mmol/L Calcium (8.5-10.1) mg/dL Magnesium (1.8-2.4) mg/dl C-Reactive Protein 1.1 H* (<1.0) mg/dL Mycoplasma pneumon IgM Negative (NEGATIVE) 09/03/18 09/03/18 Range/Units 06:16 06:16 WBC 7.87 (4.23-9.07) K/mm3 RBC 4.00 L (4.63-6.08) M/mm3 Hgb 13.0 L (13.7-17.5) gm/L Hct 38.1 L (40.1-51.0) % MCV 95.3 H (79.0-92.2) fl MCH 32.5 H (25.7-32.2) pg MCHC 34.1 (32.2-35.5) g/dl RDW Std Deviation 43.0 (35.1-43.9) fL Plt Count 115 L (163-337) K/mm3 MPV 9.5 (9.4-12.3) fl Neut % (Auto) 87.6 H (34.0-67.9) % Lymph % (Auto) 5.5 L (21.8-53.1) % [place] % (Auto) 6.7 (5.3-12.2) % Eos % (Auto) 0 L (0.8-7.0) Baso % (Auto) 0.1 (0.1-1.2) % Neut # (Auto) 6.89 H (1.78-5.38) K/mm3 Lymph # (Auto) 0.43 L (1.32-3.57) K/mm3 [place] # (Auto) 0.53 (0.30-0.82) K/mm3 Eos # (Auto) 0.00 L (0.04-0.54) K/mm3 Baso # (Auto) 0.01 (0.01-0.08) K/mm3 Manual Slide Review Abnormal smear Sodium 136 (136-145) mEq/L Potassium 3.7 (3.5-5.1) mEq/L Chloride 105 (98-107) mEq/L Carbon Dioxide 22 (21-32) mEq/L Anion Gap 12.7 (5-15) BUN 17 (7-18) mg/dL Creatinine 1.2 (0.7-1.3) mg/dL Est Cr Clr Drug Dosing 61.01 mL/min Estimated GFR (MDRD) 60 (>60) mL/min BUN/Creatinine Ratio 14.2 (14-18) Glucose 118 H (80-115) mg/dL Lactic Acid (0.4-2.0) mmol/L Calcium 7.8 L (8.5-10.1) mg/dL Magnesium 1.6 L (1.8-2.4) mg/dl C-Reactive Protein 11.8 H* (<1.0) mg/dL Mycoplasma pneumon IgM (NEGATIVE) Anshu Results Last 24 Hours: Microbiology 09/02/18 13:29 Aerobic Blood Culture - Preliminary Blood - Venous - Lab Draw NO GROWTH AFTER 1 DAY Anaerobic Blood Culture - Preliminary NO GROWTH AFTER 1 DAY 09/02/18 13:14 Aerobic Blood Culture - Preliminary Blood - Venous Gram Negative Rods Anaerobic Blood Culture - Preliminary Gram Negative Rods 09/02/18 13:59 Urine Culture - Preliminary Urine, Bladder Gram Negative Rods 09/02/18 12:30 Influenza Type A Antigen Screen - Final Nasal, Unspecified NEGATIVE INFLUENZA A VIRUS AG Influenza Type B Antigen Screen - Final NEGATIVE INFLUENZA B VIRUS AG Med Orders - Current: Current Medications Acetaminophen (Tylenol) 650 mg PO Q4H PRN PRN Reason: Pain (Mild 1-3)/fever Last Admin: 09/03/18 10:06 Dose: 650 mg Albuterol (Proventil Neb Soln) 2.5 mg NEB Q2H PRN PRN Reason: Shortness Of Breath/wheezing Albuterol/Ipratropium (Duoneb 3.0-0.5 Mg/3 Ml) 3 ml NEB Q4H PRN PRN Reason: Shortness Of Breath/wheezing Benzonatate (Tessalon Perles) 200 mg PO TID PRN PRN Reason: Cough Bisacodyl (Dulcolax) 5 mg PO DAILY PRN PRN Reason: Constipation Docusate Sodium (Colace) 100 mg PO BID PRN PRN Reason: Constipation Famotidine (Pepcid) 20 mg PO BID [facility] Last Admin: 09/03/18 09:51 Dose: 20 mg Hydralazine HCl (Apresoline) 10 mg IVPUSH Q4H PRN PRN Reason: Hypertension Ceftriaxone Sodium 2 gm/ (Sodium Chloride) 100 mls @ 200 mls/hr IV Q24H [facility] Last Admin: 09/03/18 09:51 Dose: 200 mls/hr Sodium Chloride (Normal Saline) 1,000 mls @ 150 mls/hr IV ASDIRECTED [facility] Last Admin: 09/03/18 11:09 Dose: 150 mls/hr Ketorolac Tromethamine (Toradol) 30 mg IV Q6H PRN PRN Reason: Pain (moderate 4-6) Last Admin: 09/03/18 12:53 Dose: 30 mg Losartan Potassium (Cozaar) 50 mg PO DAILY [facility] Last Admin: 09/03/18 09:52 Dose: Not Given Magnesium Hydroxide (Milk Of Magnesia) 30 ml PO Q12H PRN PRN Reason: Constipation Metoprolol Tartrate (Lopressor) 5 mg IVPUSH Q4H PRN PRN Reason: Tachycardia Ondansetron HCl (Zofran Odt) 4 mg PO Q4H PRN PRN Reason: nausea, able to take PO Ondansetron HCl (Zofran) 4 mg IV Q4H PRN PRN Reason: Nausea/Vomiting Polyethylene Glycol (Miralax) 17 gm PO DAILY PRN PRN Reason: Constipation Rosuvastatin Calcium (Crestor) 10 mg PO DAILY [facility] Last Admin: 09/03/18 09:52 Dose: 10 mg Saccharomyces Boulardii (Florastor) 250 mg PO BID [facility] Last Admin: 09/03/18 09:52 Dose: 250 mg Senna/Docusate Sodium (Senna Plus) 1 tab PO BID PRN PRN Reason: Constipation Sodium Chloride (Saline Flush) 10 ml FLUSH ASDIRECTED PRN PRN Reason: Keep Vein Open Last Admin: 09/02/18 13:19 Dose: 10 ml Tamsulosin HCl (Flomax) 0.4 mg PO DAILY [facility] Last Admin: 09/03/18 09:51 Dose: 0.4 mg Temazepam (Restoril) 7.5 mg PO BEDTIME PRN PRN Reason: Sleep Timolol Maleate (Timoptic 0.5% Ophth Soln) 0 ml EYEBOTH DAILY [facility] Last Admin: 09/03/18 09:52 Dose: 1 drop Discontinued Medications Enoxaparin Sodium (Lovenox) 40 mg SUBCUT DAILY [facility] Sodium Chloride (Normal Saline) 1,000 mls @ 1,000 mls/hr IV ASDIRECTED [facility] Last Admin: 09/02/18 13:19 Dose: 1,000 mls/hr Ceftriaxone Sodium 2 gm/ (Sodium Chloride) 100 mls @ 200 mls/hr IV ONETIME ONE Stop: 09/02/18 15:37 Last Admin: 09/02/18 17:58 Dose: Not Given Sodium Chloride (Normal Saline) 1,000 mls @ 200 mls/hr IV ONETIME ONE Stop: 09/02/18 20:09 Last Admin: 09/02/18 15:26 Dose: 200 mls/hr Ceftriaxone Sodium 2 gm/ (Sodium Chloride) 100 mls @ 200 mls/hr IV ONETIME ONE Stop: 09/02/18 15:51 Last Admin: 09/02/18 15:27 Dose: 200 mls/hr Magnesium Sulfate 4 gm/ Premix 100 mls @ 25 mls/hr IV ONETIME ONE Stop: 09/03/18 13:59 Last Admin: 09/03/18 11:11 Dose: 25 mls/hr Ketorolac Tromethamine (Toradol) 30 mg IVPUSH ONETIME ONE Stop: 09/02/18 12:45 Last Admin: 09/02/18 13:20 Dose: 30 mg - Exam Quality Assessment: DVT Prophylaxis General: Alert, Oriented, Cooperative, No Acute Distress HEENT: Pupils Equal, Pupils Reactive, EOMI, Mucous Membr. Moist/[place] Neck: Supple Lungs: Clear to Auscultation, Normal Respiratory Effort Cardiovascular: Regular Rate, Regular Rhythm GI/Abdominal Exam: Normal Bowel Sounds, Soft, Non-Tender, No Organomegaly, No Distention, No Abnormal Bruit, No Mass, Pelvis Stable (Male) Exam: Deferred Back Exam: Normal Inspection Extremities: Normal Inspection, Normal Range of Motion, Non-Tender, No Pedal Edema, Normal Capillary Refill Peripheral Pulses: 3+: Posterior Tibial (L), Posterior Tibial (R), Dorsalis Pedis (L), Dorsalis Pedis (R) Skin: Warm, Dry, Intact Neurological: No New Focal Deficit Psy/Mental Status: Alert, Normal Affect, Normal Mood - Problem List & Annotations (1) Acute prostatitis SNOMED Code(s): 99263691 Code(s): N41.0 - ACUTE PROSTATITIS Status: Resolved Priority: High Current Visit: Yes (2) UTI (urinary tract infection) SNOMED Code(s): 30889310 Code(s): N39.0 - URINARY TRACT INFECTION, SITE NOT SPECIFIED Status: Acute Priority: High Current Visit: Yes Qualifiers: Urinary tract infection type: site unspecified Hematuria presence: without hematuria Qualified Code(s): N39.0 - Urinary tract infection, site not specified (3) Bacteremia SNOMED Code(s): 8547921 Code(s): R78.81 - BACTEREMIA Status: Acute Priority: High Current Visit : Yes (4) Rotator cuff tear arthropathy of left shoulder SNOMED Code(s): 08557596830776094 Code(s): M75.102 - UNSP ROTATR-CUFF TEAR/RUPTR OF LEFT SHOULDER, NOT TRAUMA; M12.812 - OTH SPECIFIC ARTHROPATHIES, NEC, LEFT SHOULDER Status: Acute Priority: High Current Visit: Yes - Problem List Review Problem List Initiated/Reviewed/Updated: Yes - My Orders Last 24 Hours: My Active Orders 09/02/18 16:34 Height and Weight [RC] 04 Intake and Output [RC] ,02 December Shower [RC] ASDIRECTED Oxygen Therapy [RC] PRN Up ad Nolvia [RC] BID VTE/DVT Education [RC] Vital Signs [RC] Q4H Acetaminophen [Tylenol] 650 mg PO Q4H PRN Albuterol [Proventil Neb Soln] 2.5 mg NEB Q2H PRN Albuterol/Ipratropium [DuoNeb 3.0-0.5 MG/3 ML] 3 ml NEB Q4H PRN Ketorolac [Toradol] 30 mg IV Q6H PRN Ondansetron [Zofran ODT] 4 mg PO Q4H PRN Ondansetron [Zofran] 4 mg IV Q4H PRN 09/02/18 16:36 RT Aerosol Therapy [RC] ASDIRECTED 09/02/18 16:40 Bisacodyl [Dulcolax] 5 mg PO DAILY PRN Docusate Sodium [Colace] 100 mg PO BID PRN Docusate Sodium/Sennosides [Senna Plus] 1 tab PO BID PRN Magnesium Hydroxide [Milk of Magnesia] 30 ml PO Q12H PRN Polyethylene Glycol 3350 [MiraLAX] 17 gm PO DAILY PRN Temazepam [Restoril] 7.5 mg PO BEDTIME PRN 09/02/18 16:41 Benzonatate [Tessalon Perles] 200 mg PO TID PRN 09/02/18 16:42 Metoprolol Tartrate [Lopressor] 5 mg IVPUSH Q4H PRN hydrALAZINE [Apresoline] 10 mg IVPUSH Q4H PRN 09/02/18 17:00 Sodium Chloride 0.9% [Normal Saline] 1,000 ml IV ASDIRECTED 09/02/18 18:18 Antiembolic Devices [RC] BID SCD [Sequential Compression Device] [OM.PC] Routine 09/02/18 19:55 Resuscitation Status Routine 09/02/18 21:00 Famotidine [Pepcid] 20 mg PO BID Saccharomyces Boulardii [Florastor] 250 mg PO BID 09/02/18 Dinner Heart Healthy Diet [DIET] 09/03/18 09:00 Losartan [Cozaar] 50 mg PO DAILY Rosuvastatin [Crestor] 10 mg PO DAILY Tamsulosin [Flomax] 0.4 mg PO DAILY Timolol Maleate [Timoptic 0.5% Ophth Soln] 0 ml EYEBOTH DAILY cefTRIAXone [Rocephin] 2 gm Sodium Chloride 0.9% [Normal Saline] 100 ml IV Q24H 09/03/18 15:06 Consult to Physician [CONS] Routine 09/03/18 15:09 Notify Provider Consults [RC] ASDIRECTED 09/03/18 15:10 OT Evaluation and Treatment [CONS] Routine PT Evaluation and Treatment [CONS] Routine 09/04/18 05:11 BASIC METABOLIC PANEL,BMP [CHEM] AM C-REACTIVE PROTEIN [CHEM] AM CBC WITH AUTO DIFF [HEME] AM MAGNESIUM [CHEM] AM 09/05/18 05:11 BASIC METABOLIC PANEL,BMP [CHEM] AM C-REACTIVE PROTEIN [CHEM] AM CBC WITH AUTO DIFF [HEME] AM MAGNESIUM [CHEM] AM 09/06/18 05:11 BASIC METABOLIC PANEL,BMP [CHEM] AM C-REACTIVE PROTEIN [CHEM] AM CBC WITH AUTO DIFF [HEME] AM MAGNESIUM [CHEM] AM 09/07/18 05:11 BASIC METABOLIC PANEL,BMP [CHEM] AM C-REACTIVE PROTEIN [CHEM] AM CBC WITH AUTO DIFF [HEME] AM MAGNESIUM [CHEM] AM - Plan Plan:: Assessment/Plan: Acute: Acute Prostatitis * F/C, Dysuria/urgency * Risk factor: He had a prostate biopsy done yesterday at [facility] in [place] by Dr French, h/o Prostate CA * However, he had Cipro the day before, the day of the procedure and then today * No leukocytosis, CRP 1.1-->11.8 * Consulted Urologist corrosion prevention metal sprayer Dr. Blackmon at [facility] in ED: * Rocephin started in ED--> continue UTI * Dysuria/urgency * UA suspicious for UTI * Urine culture shows gram negative rods * Treatment as above Bacteremia * Likely 2/2 above * Blood cultures show gram negative rods * Treatment as above Cough, Improving * F/C, body aches, cough and sore throat x 3 days * Has had sick contacts with Viral URI, no influenza * No leukocytosis, low grade fever 99.7 in ED, [place] 2.1--> 1.4 * CXR shows nothing acute * Influenza, Mycoplasma negative Hypomagnesemia * 1.6 * Monitor and Replenish PRN L Rotator Cuff Tear * Slipped on water and fell * Dr. Matute diagnosed in [place] * Pt would like second opinion * Consult Dr. Malone Chronic: HTN Prostate CA Appendectomy Plan: Admit to Medical Floor Droplet/Respiratory precautions IVF Routine AM Labs Heart Healthy diet DVT/GI prophylaxis PT/OT Code Status: Full Code; PCP: Dr. Fernandez
[2018-09-03] MEDS ORDERED: Piperacillin/Tazobactam 4.5 GM in Sodium Chloride 0.9% 100 ML IV ONE ×4 (18:30)
[2018-09-03] MEDS: metroNIDAZOLE/Normal Saline 500 MG in Premix Bag 1 BAG IV SCH (18:32)
[2018-09-04] MEDS: metroNIDAZOLE/Normal Saline 500 MG in Premix Bag 1 BAG IV SCH ×3 (01:14→16:29)
[2018-09-04] MEDS: Piperacillin/Tazobactam 4.5 GM in Sodium Chloride 0.9% 100 ML IV SCH ×3 (02:24→17:47)
[2018-09-04] MEDS: Acetaminophen 325 MG Tab PO PRN ×3 (04:47→20:55)
[2018-09-04] MEDS: Sodium Chloride 0.9% 1,000 ML IV SCH (06:50)
[2018-09-04] MEDS: Saccharomyces Boulardii (Probiotic) 250 MG Cap PO SCH ×2 (09:38→20:54)
[2018-09-04] MEDS: Famotidine 20 MG Tab PO SCH ×2 (09:39→20:54)
[2018-09-04] MEDS: Rosuvastatin 10 MG Tab PO SCH (09:39)
[2018-09-04] MEDS: Timolol Maleate 0.5% Ophth Soln 5 ML Bottle EYEBOTH SCH (09:40)
[2018-09-04] MEDS: Tamsulosin 0.4 MG Cap.ER PO SCH (09:40)
[2018-09-04] MEDS ORDERED: Temazepam 15 MG Cap PO PRN (11:34)
[2018-09-04] MEDS ORDERED: Furosemide 20 MG/2 ML VIAL IVPUSH ONE (12:00)
--- NOTE | 2018-09-04 13:03 | PCM.PN ---
- General Info Date of Service: 09/04/18 Subjective Update: Restless last night, unable to sleep however improved greatly this morning. No longer have fever, chills, required anaerobic coverage. May be continued on Rocephin, but opted for Zosyn/Flagyl. Anticipate DC Thursday, 09/07 probable Rx at DC : Keflex, Flagyl for 7 days. Functional Status: Reports: Tolerating Diet, Ambulating, Urinating - Review of Systems General: Reports: Weakness, Malaise HEENT: Reports: No Symptoms Pulmonary: Reports: Shortness of Breath Cardiovascular: Reports: No Symptoms Gastrointestinal: Reports: No Symptoms Genitourinary: Reports: No Symptoms Musculoskeletal: Reports: No Symptoms Skin: Reports: No Symptoms Neurological: Reports: No Symptoms Psychiatric: Reports: No Symptoms - Patient Data Vitals - Most Recent: Last Vital Signs Temp 37.3 C 09/04/18 11:19 Pulse 73 09/04/18 11:19 Resp 16 09/04/18 11:19 BP 123/90 09/04/18 11:19 Pulse Ox 98 09/04/18 11:19 Weight - Most Recent: 104.236 kg I&O - Last 24 Hours: Intake & Output 09/03/18 09/04/18 09/04/18 22:59 06:59 14:59 Intake Total 2893 2755 90 Output Total 1050 300 Balance 1843 2455 90 Lab Results Last 24 Hours: Laboratory Results - last 24 hr 09/04/18 09/04/18 Range/Units 05:42 06:15 WBC 4.36 (4.23-9.07) K/mm3 RBC 3.66 L (4.63-6.08) M/mm3 Hgb 11.9 L (13.7-17.5) gm/L Hct 34.9 L (40.1-51.0) % MCV 95.4 H (79.0-92.2) fl MCH 32.5 H (25.7-32.2) pg MCHC 34.1 (32.2-35.5) g/dl RDW Std Deviation 42.9 (35.1-43.9) fL Plt Count 92 L (163-337) K/mm3 MPV 9.8 (9.4-12.3) fl Neut % (Auto) 84.6 H (34.0-67.9) % Lymph % (Auto) 8.5 L (21.8-53.1) % [place] % (Auto) 6.2 (5.3-12.2) % Eos % (Auto) 0.5 L (0.8-7.0) Baso % (Auto) 0.2 (0.1-1.2) % Neut # (Auto) 3.69 (1.78-5.38) K/mm3 Lymph # (Auto) 0.37 L (1.32-3.57) K/mm3 [place] # (Auto) 0.27 L (0.30-0.82) K/mm3 Eos # (Auto) 0.02 L (0.04-0.54) K/mm3 Baso # (Auto) 0.01 (0.01-0.08) K/mm3 Manual Slide Review Abnormal smear Sodium 133 L (136-145) mEq/L Potassium 3.9 (3.5-5.1) mEq/L Chloride 104 (98-107) mEq/L Carbon Dioxide 19 L (21-32) mEq/L Anion Gap 13.9 (5-15) BUN 15 (7-18) mg/dL Creatinine 1.2 (0.7-1.3) mg/dL Est Cr Clr Drug Dosing 61.01 mL/min Estimated GFR (MDRD) 60 (>60) mL/min BUN/Creatinine Ratio 12.5 L (14-18) Glucose 99 (80-115) mg/dL Calcium 7.4 L (8.5-10.1) mg/dL Magnesium 2.0 (1.8-2.4) mg/dl C-Reactive Protein 17.8 H* (<1.0) mg/dL Anshu Results Last 24 Hours: Microbiology 09/02/18 13:59 Urine Culture - Final Urine, Bladder Escherichia Coli 09/02/18 13:14 Aerobic Blood Culture - Preliminary Blood - Venous Gram Negative Rods Anaerobic Blood Culture - Preliminary Gram Negative Rods 09/02/18 13:29 Aerobic Blood Culture - Preliminary Blood - Venous - Lab Draw NO GROWTH AFTER 1 DAY Anaerobic Blood Culture - Preliminary NO GROWTH AFTER 1 DAY Med Orders - Current: Current Medications Acetaminophen (Tylenol) 650 mg PO Q4H PRN PRN Reason: Pain (Mild 1-3)/fever Last Admin: 09/04/18 04:47 Dose: 650 mg Albuterol (Proventil Neb Soln) 2.5 mg NEB Q2H PRN PRN Reason: Shortness Of Breath/wheezing Albuterol/Ipratropium (Duoneb 3.0-0.5 Mg/3 Ml) 3 ml NEB Q4H PRN PRN Reason: Shortness Of Breath/wheezing Benzonatate (Tessalon Perles) 200 mg PO TID PRN PRN Reason: Cough Bisacodyl (Dulcolax) 5 mg PO DAILY PRN PRN Reason: Constipation Docusate Sodium (Colace) 100 mg PO BID PRN PRN Reason: Constipation Famotidine (Pepcid) 20 mg PO BID [facility] Last Admin: 09/04/18 09:39 Dose: 20 mg Hydralazine HCl (Apresoline) 10 mg IVPUSH Q4H PRN PRN Reason: Hypertension Metronidazole 500 mg/ Premix 100 mls @ 100 mls/hr IV Q8H [facility] Last Admin: 09/04/18 09:41 Dose: 100 mls/hr Piperacillin Sod/Tazobactam (Sod 4.5 gm/ Sodium Chloride) 100 mls @ 25 mls/hr IV Q8H [facility] Last Admin: 09/04/18 11:10 Dose: 25 mls/hr Ketorolac Tromethamine (Toradol) 30 mg IV Q6H PRN PRN Reason: Pain (moderate 4-6) Last Admin: 09/03/18 12:53 Dose: 30 mg Magnesium Hydroxide (Milk Of Magnesia) 30 ml PO Q12H PRN PRN Reason: Constipation Metoprolol Tartrate (Lopressor) 5 mg IVPUSH Q4H PRN PRN Reason: Tachycardia Olmesartan 20 Mg Tab (*Pt Own Med*) 0 each PO DAILY [facility] Last Admin: 09/04/18 09:40 Dose: 1 each Ondansetron HCl (Zofran Odt) 4 mg PO Q4H PRN PRN Reason: nausea, able to take PO Ondansetron HCl (Zofran) 4 mg IV Q4H PRN PRN Reason: Nausea/Vomiting Polyethylene Glycol (Miralax) 17 gm PO DAILY PRN PRN Reason: Constipation Rosuvastatin Calcium (Crestor) 10 mg PO DAILY [facility] Last Admin: 09/04/18 09:39 Dose: 10 mg Saccharomyces Boulardii (Florastor) 250 mg PO BID [facility] Last Admin: 09/04/18 09:38 Dose: 250 mg Senna/Docusate Sodium (Senna Plus) 1 tab PO BID PRN PRN Reason: Constipation Sodium Chloride (Saline Flush) 10 ml FLUSH ASDIRECTED PRN PRN Reason: Keep Vein Open Last Admin: 09/02/18 13:19 Dose: 10 ml Tamsulosin HCl (Flomax) 0.4 mg PO DAILY [facility] Last Admin: 09/04/18 09:40 Dose: 0.4 mg Temazepam (Restoril) 15 mg PO BEDTIME PRN PRN Reason: Sleep Timolol Maleate (Timoptic 0.5% Ophth Soln) 0 ml EYEBOTH DAILY [facility] Last Admin: 09/04/18 09:40 Dose: 1 drop Discontinued Medications Enoxaparin Sodium (Lovenox) 40 mg SUBCUT DAILY [facility] Furosemide (Lasix) 20 mg IVPUSH ONETIME ONE Stop: 09/04/18 12:01 Last Admin: 09/04/18 12:23 Dose: 20 mg Sodium Chloride (Normal Saline) 1,000 mls @ 1,000 mls/hr IV ASDIRECTED [facility] Last Admin: 09/02/18 13:19 Dose: 1,000 mls/hr Ceftriaxone Sodium 2 gm/ (Sodium Chloride) 100 mls @ 200 mls/hr IV ONETIME ONE Stop: 09/02/18 15:37 Last Admin: 09/02/18 17:58 Dose: Not Given Sodium Chloride (Normal Saline) 1,000 mls @ 200 mls/hr IV ONETIME ONE Stop: 09/02/18 20:09 Last Admin: 09/02/18 15:26 Dose: 200 mls/hr Ceftriaxone Sodium 2 gm/ (Sodium Chloride) 100 mls @ 200 mls/hr IV ONETIME ONE Stop: 09/02/18 15:51 Last Admin: 09/02/18 15:27 Dose: 200 mls/hr Ceftriaxone Sodium 2 gm/ (Sodium Chloride) 100 mls @ 200 mls/hr IV Q24H [facility] Last Admin: 09/03/18 09:51 Dose: 200 mls/hr Sodium Chloride (Normal Saline) 1,000 mls @ 150 mls/hr IV ASDIRECTED [facility] Last Admin: 09/04/18 06:50 Dose: 150 mls/hr Magnesium Sulfate 4 gm/ Premix 100 mls @ 25 mls/hr IV ONETIME ONE Stop: 09/03/18 13:59 Last Admin: 09/03/18 11:11 Dose: 25 mls/hr Piperacillin Sod/Tazobactam (Sod 4.5 gm/ Sodium Chloride) 100 mls @ 200 mls/hr IV ONETIME ONE Stop: 09/03/18 18:59 Piperacillin Sod/Tazobactam (Sod 4.5 gm/ Sodium Chloride) 100 mls @ 200 mls/hr IV ONETIME ONE Stop: 09/03/18 18:59 Last Admin: 09/03/18 19:40 Dose: 200 mls/hr Ketorolac Tromethamine (Toradol) 30 mg IVPUSH ONETIME ONE Stop: 09/02/18 12:45 Last Admin: 09/02/18 13:20 Dose: 30 mg Losartan Potassium (Cozaar) 50 mg PO DAILY [facility] Last Admin: 09/03/18 09:52 Dose: Not Given Temazepam (Restoril) 7.5 mg PO BEDTIME PRN PRN Reason: Sleep - Exam Quality Assessment: Supplemental Oxygen, DVT Prophylaxis General: Alert, Oriented, Cooperative, No Acute Distress HEENT: Pupils Equal, Pupils Reactive, EOMI Neck: Trachea Midline, No JVD Lungs: Normal Respiratory Effort Cardiovascular: Regular Rate, Regular Rhythm GI/Abdominal Exam: Normal Bowel Sounds, Soft, Non-Tender, No Organomegaly, No Distention (Male) Exam: Deferred Back Exam: Normal Inspection Extremities: Normal Inspection, Non-Tender, Normal Capillary Refill, Pedal Edema Skin: Warm Neurological: No New Focal Deficit, Normal Gait, Normal Speech Psy/Mental Status: Alert, Normal Affect, Normal Mood - Problem List Review Problem List Initiated/Reviewed/Updated: Yes - My Orders Last 24 Hours: My Active Orders 09/04/18 05:12 Bladder Scan [RC] ASDIRECTED 09/04/18 11:29 Incentive Spirometry [RT Incentive Spirometry] [RC] Q2HWA 09/04/18 11:34 Temazepam [Restoril] 15 mg PO BEDTIME PRN 09/04/18 13:30 CULTURE BLOOD [BC] Timed CULTURE BLOOD [BC] Timed Blood Culture x2 Reflex Set [OM.PC] Stat 09/05/18 05:00 CULTURE BLOOD [BC] Routine - Plan Plan:: Assessment/Plan: Acute: Acute Prostatitis * F/C, Dysuria/urgency * Risk factor: He had a prostate biopsy done yesterday at [facility] [facility] in [place] by Dr French, h/o Prostate CA * However, he had Cipro the day before, the day of the procedure and then today * No leukocytosis, CRP 1.1-->11.8 * Consulted Urologist flight control manager Dr. Blackmon at [facility] in ED: * Rocephin started in ED--> continue UTI * Dysuria/urgency * UA suspicious for UTI * Urine culture shows gram negative rods * Treatment as above Bacteremia * Likely 2/2 above * Blood cultures show gram negative rods, anaerobes * Treatment as above Cough, Improving * F/C, body aches, cough and sore throat x 3 days * Has had sick contacts with Viral URI, no influenza * No leukocytosis, low grade fever 99.7 in ED, [place] 2.1--> 1.4 * CXR shows nothing acute * Influenza, Mycoplasma negative Hypomagnesemia * 1.6 * Monitor and Replenish PRN L Rotator Cuff Tear * Slipped on water and fell * Dr. Matute diagnosed in [place] * Pt would like second opinion * Consult Dr. Malone, follow up at out patient Chronic: HTN Prostate CA Appendectomy Plan: Medical Floor Droplet/Respiratory precautions IVF-->stopped, diurese Repeat BCs on 09/05/18. Routine AM Labs Heart Healthy diet DVT/GI prophylaxis PT/OT Code Status: Full Code; PCP: Dr. Fernandez Anticipate DC on , 09/07 if BCs are negative; DC on Keflex, Flagyl.
[2018-09-05] MEDS: metroNIDAZOLE/Normal Saline 500 MG in Premix Bag 1 BAG IV SCH ×3 (02:19→16:33)
[2018-09-05] MEDS: Acetaminophen 325 MG Tab PO PRN ×2 (02:31→22:00)
[2018-09-05] MEDS: Piperacillin/Tazobactam 4.5 GM in Sodium Chloride 0.9% 100 ML IV SCH ×3 (02:32→17:34)
[2018-09-05] MEDS: Tamsulosin 0.4 MG Cap.ER PO SCH (09:17)
[2018-09-05] MEDS: Famotidine 20 MG Tab PO SCH ×2 (09:17→20:55)
[2018-09-05] MEDS: Saccharomyces Boulardii (Probiotic) 250 MG Cap PO SCH ×2 (09:17→20:55)
[2018-09-05] MEDS: Rosuvastatin 10 MG Tab PO SCH (09:17)
[2018-09-05] MEDS: Timolol Maleate 0.5% Ophth Soln 5 ML Bottle EYEBOTH SCH (09:17)
[2018-09-05] MEDS: Albuterol/Ipratropium 3.0-0.5 MG/3 ML Neb Soln NEB PRN ×3 (11:48→20:01)
--- NOTE | 2018-09-05 13:00 | PCM.PN ---
- General Info Date of Service: 09/05/18 Functional Status: Reports: Pain Controlled, Tolerating Diet, Ambulating, Urinating - Review of Systems General: Reports: No Symptoms HEENT: Reports: No Symptoms Pulmonary: Reports: No Symptoms Cardiovascular: Reports: No Symptoms Gastrointestinal: Reports: No Symptoms Genitourinary: Reports: No Symptoms Musculoskeletal: Reports: No Symptoms Skin: Reports: No Symptoms Neurological: Reports: No Symptoms Psychiatric: Reports: No Symptoms - Patient Data Vitals - Most Recent: Last Vital Signs Temp 37.6 C 09/05/18 03:20 Pulse 69 09/05/18 03:20 Resp 20 09/05/18 03:20 BP 121/86 09/05/18 03:20 Pulse Ox 98 09/05/18 11:48 Weight - Most Recent: 101.922 kg I&O - Last 24 Hours: Intake & Output 09/04/18 09/05/18 09/05/18 22:59 06:59 14:59 Intake Total 2440 320 0 Output Total 2200 1350 Balance 240 -1030 0 Lab Results Last 24 Hours: Laboratory Results - last 24 hr 09/05/18 09/05/18 Range/Units 05:05 05:05 WBC 4.79 (4.23-9.07) K/mm3 RBC 3.94 L (4.63-6.08) M/mm3 Hgb 12.8 L (13.7-17.5) gm/L Hct 36.8 L (40.1-51.0) % MCV 93.4 H (79.0-92.2) fl MCH 32.5 H (25.7-32.2) pg MCHC 34.8 (32.2-35.5) g/dl RDW Std Deviation 41.6 (35.1-43.9) fL Plt Count 100 L (163-337) K/mm3 MPV 10.2 (9.4-12.3) fl Neut % (Auto) 75.0 H (34.0-67.9) % Lymph % (Auto) 12.9 L (21.8-53.1) % [place] % (Auto) 9.2 (5.3-12.2) % Eos % (Auto) 2.7 (0.8-7.0) Baso % (Auto) 0.2 (0.1-1.2) % Neut # (Auto) 3.59 (1.78-5.38) K/mm3 Lymph # (Auto) 0.62 L (1.32-3.57) K/mm3 [place] # (Auto) 0.44 (0.30-0.82) K/mm3 Eos # (Auto) 0.13 (0.04-0.54) K/mm3 Baso # (Auto) 0.01 (0.01-0.08) K/mm3 Sodium 137 (136-145) mEq/L Potassium 3.7 (3.5-5.1) mEq/L Chloride 106 (98-107) mEq/L Carbon Dioxide 21 (21-32) mEq/L Anion Gap 13.7 (5-15) BUN 17 (7-18) mg/dL Creatinine 1.2 (0.7-1.3) mg/dL Est Cr Clr Drug Dosing 61.01 mL/min Estimated GFR (MDRD) 60 (>60) mL/min BUN/Creatinine Ratio 14.2 (14-18) Glucose 96 (80-115) mg/dL Calcium 8.1 L (8.5-10.1) mg/dL Magnesium 1.9 (1.8-2.4) mg/dl C-Reactive Protein 14.8 H* (<1.0) mg/dL Anshu Results Last 24 Hours: Microbiology 09/02/18 13:14 Aerobic Blood Culture - Preliminary Blood - Venous Escherichia Coli Anaerobic Blood Culture - Preliminary Escherichia Coli 09/02/18 13:29 Aerobic Blood Culture - Preliminary Blood - Venous - Lab Draw NO GROWTH AFTER 2 DAYS Anaerobic Blood Culture - Preliminary NO GROWTH AFTER 2 DAYS 09/02/18 13:59 Urine Culture - Final Urine, Bladder Escherichia Coli Med Orders - Current: Current Medications Acetaminophen (Tylenol) 650 mg PO Q4H PRN PRN Reason: Pain (Mild 1-3)/fever Last Admin: 09/05/18 02:31 Dose: 650 mg Albuterol (Proventil Neb Soln) 2.5 mg NEB Q2H PRN PRN Reason: Shortness Of Breath/wheezing Albuterol/Ipratropium (Duoneb 3.0-0.5 Mg/3 Ml) 3 ml NEB Q4H PRN PRN Reason: Shortness Of Breath/wheezing Last Admin: 09/05/18 11:48 Dose: 3 ml Benzonatate (Tessalon Perles) 200 mg PO TID PRN PRN Reason: Cough Bisacodyl (Dulcolax) 5 mg PO DAILY PRN PRN Reason: Constipation Docusate Sodium (Colace) 100 mg PO BID PRN PRN Reason: Constipation Famotidine (Pepcid) 20 mg PO BID [facility] Last Admin: 09/05/18 09:17 Dose: 20 mg Hydralazine HCl (Apresoline) 10 mg IVPUSH Q4H PRN PRN Reason: Hypertension Metronidazole 500 mg/ Premix 100 mls @ 100 mls/hr IV Q8H [facility] Last Admin: 09/05/18 09:17 Dose: 100 mls/hr Piperacillin Sod/Tazobactam (Sod 4.5 gm/ Sodium Chloride) 100 mls @ 25 mls/hr IV Q8H [facility] Last Admin: 09/05/18 11:14 Dose: 25 mls/hr Ketorolac Tromethamine (Toradol) 30 mg IV Q6H PRN PRN Reason: Pain (moderate 4-6) Last Admin: 09/03/18 12:53 Dose: 30 mg Magnesium Hydroxide (Milk Of Magnesia) 30 ml PO Q12H PRN PRN Reason: Constipation Metoprolol Tartrate (Lopressor) 5 mg IVPUSH Q4H PRN PRN Reason: Tachycardia Olmesartan 20 Mg Tab (*Pt Own Med*) 0 each PO DAILY [facility] Last Admin: 09/05/18 09:19 Dose: 1 each Ondansetron HCl (Zofran Odt) 4 mg PO Q4H PRN PRN Reason: nausea, able to take PO Ondansetron HCl (Zofran) 4 mg IV Q4H PRN PRN Reason: Nausea/Vomiting Polyethylene Glycol (Miralax) 17 gm PO DAILY PRN PRN Reason: Constipation Rosuvastatin Calcium (Crestor) 10 mg PO DAILY [facility] Last Admin: 09/05/18 09:17 Dose: 10 mg Saccharomyces Boulardii (Florastor) 250 mg PO BID [facility] Last Admin: 09/05/18 09:17 Dose: 250 mg Senna/Docusate Sodium (Senna Plus) 1 tab PO BID PRN PRN Reason: Constipation Sodium Chloride (Saline Flush) 10 ml FLUSH ASDIRECTED PRN PRN Reason: Keep Vein Open Last Admin: 09/02/18 13:19 Dose: 10 ml Tamsulosin HCl (Flomax) 0.4 mg PO DAILY [facility] Last Admin: 09/05/18 09:17 Dose: 0.4 mg Temazepam (Restoril) 15 mg PO BEDTIME PRN PRN Reason: Sleep Last Admin: 09/04/18 22:13 Dose: 15 mg Timolol Maleate (Timoptic 0.5% Ophth Soln) 0 ml EYEBOTH DAILY [facility] Last Admin: 09/05/18 09:17 Dose: 1 drop Discontinued Medications Enoxaparin Sodium (Lovenox) 40 mg SUBCUT DAILY [facility] Furosemide (Lasix) 20 mg IVPUSH ONETIME ONE Stop: 09/04/18 12:01 Last Admin: 09/04/18 12:23 Dose: 20 mg Sodium Chloride (Normal Saline) 1,000 mls @ 1,000 mls/hr IV ASDIRECTED [facility] Last Admin: 09/02/18 13:19 Dose: 1,000 mls/hr Ceftriaxone Sodium 2 gm/ (Sodium Chloride) 100 mls @ 200 mls/hr IV ONETIME ONE Stop: 09/02/18 15:37 Last Admin: 09/02/18 17:58 Dose: Not Given Sodium Chloride (Normal Saline) 1,000 mls @ 200 mls/hr IV ONETIME ONE Stop: 09/02/18 20:09 Last Admin: 09/02/18 15:26 Dose: 200 mls/hr Ceftriaxone Sodium 2 gm/ (Sodium Chloride) 100 mls @ 200 mls/hr IV ONETIME ONE Stop: 09/02/18 15:51 Last Admin: 09/02/18 15:27 Dose: 200 mls/hr Ceftriaxone Sodium 2 gm/ (Sodium Chloride) 100 mls @ 200 mls/hr IV Q24H [facility] Last Admin: 09/03/18 09:51 Dose: 200 mls/hr Sodium Chloride (Normal Saline) 1,000 mls @ 150 mls/hr IV ASDIRECTED [facility] Last Admin: 09/04/18 06:50 Dose: 150 mls/hr Magnesium Sulfate 4 gm/ Premix 100 mls @ 25 mls/hr IV ONETIME ONE Stop: 09/03/18 13:59 Last Admin: 09/03/18 11:11 Dose: 25 mls/hr Piperacillin Sod/Tazobactam (Sod 4.5 gm/ Sodium Chloride) 100 mls @ 200 mls/hr IV ONETIME ONE Stop: 09/03/18 18:59 Piperacillin Sod/Tazobactam (Sod 4.5 gm/ Sodium Chloride) 100 mls @ 200 mls/hr IV ONETIME ONE Stop: 09/03/18 18:59 Last Admin: 09/03/18 19:40 Dose: 200 mls/hr Ketorolac Tromethamine (Toradol) 30 mg IVPUSH ONETIME ONE Stop: 09/02/18 12:45 Last Admin: 09/02/18 13:20 Dose: 30 mg Losartan Potassium (Cozaar) 50 mg PO DAILY [facility] Last Admin: 09/03/18 09:52 Dose: Not Given Temazepam (Restoril) 7.5 mg PO BEDTIME PRN PRN Reason: Sleep - Exam Quality Assessment: DVT Prophylaxis General: Alert, Oriented, Cooperative, No Acute Distress HEENT: Pupils Equal, Pupils Reactive, EOMI Neck: Trachea Midline, No JVD Lungs: Normal Respiratory Effort Cardiovascular: Regular Rate, Regular Rhythm GI/Abdominal Exam: Normal Bowel Sounds, Soft, Non-Tender, No Organomegaly, No Distention (Male) Exam: Deferred Back Exam: Normal Inspection Extremities: Normal Inspection, Non-Tender, Normal Capillary Refill Skin: Warm Neurological: No New Focal Deficit, Normal Gait, Normal Speech Psy/Mental Status: Alert, Normal Affect, Normal Mood - Problem List Review Problem List Initiated/Reviewed/Updated: Yes - My Orders Last 24 Hours: My Active Orders 09/04/18 13:28 CULTURE BLOOD [BC] Timed 09/04/18 13:30 Blood Culture x2 Reflex Set [OM.PC] Stat 09/04/18 13:34 CULTURE BLOOD [BC] Timed 09/05/18 05:05 CULTURE BLOOD [BC] Routine - Plan Plan:: Assessment/Plan: Acute: Acute Prostatitis * F/C, Dysuria/urgency * Risk factor: He had a prostate biopsy done yesterday at [facility] in [place] by Dr French, h/o Prostate CA * However, he had Cipro the day before, the day of the procedure and then today * No leukocytosis, CRP 1.1-->11.8 * Consulted Urologist person investigator Dr. Blackmon at [facility] in ED: * Rocephin started in ED--> continue UTI * Dysuria/urgency * UA suspicious for UTI * Urine culture shows gram negative rods * Treatment as above Bacteremia * Likely 2/2 above * Blood cultures show gram negative rods, anaerobes * Treatment as above; repeat BCs today, 09/05/18 Cough, Improving * F/C, body aches, cough and sore throat x 3 days * Has had sick contacts with Viral URI, no influenza * No leukocytosis, low grade fever 99.7 in ED, [place] 2.1--> 1.4 * CXR shows nothing acute * Influenza, Mycoplasma negative Hypomagnesemia-->improving * 1.6 * Monitor and Replenish PRN L Rotator Cuff Tear * Slipped on water and fell * Dr. Matute diagnosed in [place] * Pt would like second opinion * Consult Dr. Malone, follow up at out patient Chronic: HTN Prostate CA Appendectomy Plan: Medical Floor Droplet/Respiratory precautions IVF-->stopped, diurese Repeat BCs on 09/05/18. Routine AM Labs Heart Healthy diet DVT/GI prophylaxis PT/OT Code Status: Full Code; PCP: Dr. Fernandez Anticipate DC on , 09/07 if BCs are negative; DC on Keflex, Flagyl.
[2018-09-06] MEDS: metroNIDAZOLE/Normal Saline 500 MG in Premix Bag 1 BAG IV SCH ×2 (01:18→12:23)
[2018-09-06] MEDS: Piperacillin/Tazobactam 4.5 GM in Sodium Chloride 0.9% 100 ML IV SCH ×2 (02:22→12:23)
[2018-09-06] MEDS: Albuterol/Ipratropium 3.0-0.5 MG/3 ML Neb Soln NEB PRN ×2 (02:36→21:41)
--- NOTE | 2018-09-06 08:07 | PCM.SN ---
- Free Text/Narrative Note: Peripheral IV site has infiltrated, needs at least another 24 hours more of Zosyn/Flagyl. BC repeat results are noted. Patient has been refusing a new IV.
[2018-09-06] MEDS: Rosuvastatin 10 MG Tab PO SCH (08:22)
[2018-09-06] MEDS: Saccharomyces Boulardii (Probiotic) 250 MG Cap PO SCH ×2 (08:22→21:22)
[2018-09-06] MEDS: Tamsulosin 0.4 MG Cap.ER PO SCH (08:22)
[2018-09-06] MEDS: Famotidine 20 MG Tab PO SCH ×2 (08:22→21:22)
[2018-09-06] MEDS: Timolol Maleate 0.5% Ophth Soln 5 ML Bottle EYEBOTH SCH (08:22)
--- NOTE | 2018-09-06 09:25 | PCM.PN ---
- General Info Date of Service: 09/06/18 Admission Dx/Problem (Free Text): Admission Diagnosis/Problem Admission Diagnosis/Problem UTI, Urinary tract infectious disease Subjective Update: Follow Up Functional Status: Reports: Pain Controlled, Tolerating Diet, Ambulating, Urinating. Denies: New Symptoms - Review of Systems General: Denies: Fever, Weakness, Fatigue, Malaise, Chills HEENT: Reports: No Symptoms Pulmonary: Denies: Shortness of Breath Cardiovascular: Denies: Chest Pain, Dyspnea on Exertion, Lightheadedness Gastrointestinal: Denies: Abdominal Pain, Decreased Appetite, Nausea, Vomiting Genitourinary: Reports: No Symptoms Musculoskeletal: Reports: No Symptoms Skin: Reports: No Symptoms Neurological: Denies: Confusion, Weakness, Gait Disturbance Psychiatric: Denies: Depression, Anxiety, Agitation Systems Review Comment:: No overnight or acute issues. He seems to be doing relatively well. He refused IV antibiotic infusion until he speaks to me this morning. He has no complaints and feels good otherwise. His labs are improving. His repeat blood culture so far is negative for 24 hrs. - Patient Data Vitals - Most Recent: Last Vital Signs Temp 36.7 C 09/06/18 07:20 Pulse 69 09/06/18 07:20 Resp 14 09/06/18 07:20 BP 142/94 H 09/06/18 07:20 Pulse Ox 95 09/06/18 07:20 Weight - Most Recent: 100.743 kg I&O - Last 24 Hours: Intake & Output 09/05/18 09/06/18 09/06/18 22:59 06:59 14:59 Intake Total 1880 700 Output Total 600 700 Balance 1280 0 Lab Results Last 24 Hours: Laboratory Results - last 24 hr 09/06/18 09/06/18 Range/Units 06:10 06:10 WBC 4.56 (4.23-9.07) K/mm3 RBC 3.77 L (4.63-6.08) M/mm3 Hgb 12.3 L (13.7-17.5) gm/L Hct 35.3 L (40.1-51.0) % MCV 93.6 H (79.0-92.2) fl MCH 32.6 H (25.7-32.2) pg MCHC 34.8 (32.2-35.5) g/dl RDW Std Deviation 42.1 (35.1-43.9) fL Plt Count 128 L (163-337) K/mm3 MPV 9.7 (9.4-12.3) fl Neut % (Auto) 64.9 (34.0-67.9) % Lymph % (Auto) 18.9 L (21.8-53.1) % [place] % (Auto) 12.1 (5.3-12.2) % Eos % (Auto) 3.5 (0.8-7.0) Baso % (Auto) 0.4 (0.1-1.2) % Neut # (Auto) 2.96 (1.78-5.38) K/mm3 Lymph # (Auto) 0.86 L (1.32-3.57) K/mm3 [place] # (Auto) 0.55 (0.30-0.82) K/mm3 Eos # (Auto) 0.16 (0.04-0.54) K/mm3 Baso # (Auto) 0.02 (0.01-0.08) K/mm3 Sodium 137 (136-145) mEq/L Potassium 3.7 (3.5-5.1) mEq/L Chloride 106 (98-107) mEq/L Carbon Dioxide 23 (21-32) mEq/L Anion Gap 11.7 (5-15) BUN 14 (7-18) mg/dL Creatinine 1.2 (0.7-1.3) mg/dL Est Cr Clr Drug Dosing 61.01 mL/min Estimated GFR (MDRD) 60 (>60) mL/min BUN/Creatinine Ratio 11.7 L (14-18) Glucose 96 (80-115) mg/dL Calcium 7.9 L (8.5-10.1) mg/dL Magnesium 1.9 (1.8-2.4) mg/dl C-Reactive Protein 8.2 H* (<1.0) mg/dL Anshu Results Last 24 Hours: Microbiology 09/02/18 13:14 Aerobic Blood Culture - Preliminary Blood - Venous Escherichia Coli Anaerobic Blood Culture - Preliminary Escherichia Coli 09/05/18 05:05 Aerobic Blood Culture - Preliminary Blood NO GROWTH AFTER 1 DAY Anaerobic Blood Culture - Preliminary NO GROWTH AFTER 1 DAY 09/04/18 13:34 Aerobic Blood Culture - Preliminary Blood - Venous - Lab Draw NO GROWTH AFTER 1 DAY Anaerobic Blood Culture - Preliminary NO GROWTH AFTER 1 DAY 09/04/18 13:28 Aerobic Blood Culture - Preliminary Blood - Venous NO GROWTH AFTER 1 DAY Anaerobic Blood Culture - Preliminary NO GROWTH AFTER 1 DAY 09/02/18 13:29 Aerobic Blood Culture - Preliminary Blood - Venous - Lab Draw NO GROWTH AFTER 3 DAYS Anaerobic Blood Culture - Preliminary NO GROWTH AFTER 3 DAYS Med Orders - Current: Current Medications Acetaminophen (Tylenol) 650 mg PO Q4H PRN PRN Reason: Pain (Mild 1-3)/fever Last Admin: 09/05/18 22:00 Dose: 650 mg Albuterol (Proventil Neb Soln) 2.5 mg NEB Q2H PRN PRN Reason: Shortness Of Breath/wheezing Albuterol/Ipratropium (Duoneb 3.0-0.5 Mg/3 Ml) 3 ml NEB Q4H PRN PRN Reason: Shortness Of Breath/wheezing Last Admin: 09/06/18 02:36 Dose: 3 ml Benzonatate (Tessalon Perles) 200 mg PO TID PRN PRN Reason: Cough Bisacodyl (Dulcolax) 5 mg PO DAILY PRN PRN Reason: Constipation Docusate Sodium (Colace) 100 mg PO BID PRN PRN Reason: Constipation Famotidine (Pepcid) 20 mg PO BID [facility] Last Admin: 09/06/18 08:22 Dose: 20 mg Hydralazine HCl (Apresoline) 10 mg IVPUSH Q4H PRN PRN Reason: Hypertension Metronidazole 500 mg/ Premix 100 mls @ 100 mls/hr IV Q8H [facility] Last Admin: 09/06/18 01:18 Dose: 100 mls/hr Piperacillin Sod/Tazobactam (Sod 4.5 gm/ Sodium Chloride) 100 mls @ 25 mls/hr IV Q8H [facility] Last Admin: 09/06/18 02:22 Dose: 25 mls/hr Ketorolac Tromethamine (Toradol) 30 mg IV Q6H PRN PRN Reason: Pain (moderate 4-6) Last Admin: 09/03/18 12:53 Dose: 30 mg Magnesium Hydroxide (Milk Of Magnesia) 30 ml PO Q12H PRN PRN Reason: Constipation Metoprolol Tartrate (Lopressor) 5 mg IVPUSH Q4H PRN PRN Reason: Tachycardia Olmesartan 20 Mg Tab (*Pt Own Med*) 0 each PO DAILY [facility] Last Admin: 09/06/18 08:22 Dose: 1 each Ondansetron HCl (Zofran Odt) 4 mg PO Q4H PRN PRN Reason: nausea, able to take PO Ondansetron HCl (Zofran) 4 mg IV Q4H PRN PRN Reason: Nausea/Vomiting Polyethylene Glycol (Miralax) 17 gm PO DAILY PRN PRN Reason: Constipation Rosuvastatin Calcium (Crestor) 10 mg PO DAILY [facility] Last Admin: 09/06/18 08:22 Dose: 10 mg Saccharomyces Boulardii (Florastor) 250 mg PO BID [facility] Last Admin: 09/06/18 08:22 Dose: 250 mg Senna/Docusate Sodium (Senna Plus) 1 tab PO BID PRN PRN Reason: Constipation Sodium Chloride (Saline Flush) 10 ml FLUSH ASDIRECTED PRN PRN Reason: Keep Vein Open Last Admin: 09/02/18 13:19 Dose: 10 ml Tamsulosin HCl (Flomax) 0.4 mg PO DAILY [facility] Last Admin: 09/06/18 08:22 Dose: 0.4 mg Temazepam (Restoril) 15 mg PO BEDTIME PRN PRN Reason: Sleep Last Admin: 09/04/18 22:13 Dose: 15 mg Timolol Maleate (Timoptic 0.5% Ophth Soln) 0 ml EYEBOTH DAILY [facility] Last Admin: 09/06/18 08:22 Dose: 1 drop Discontinued Medications Enoxaparin Sodium (Lovenox) 40 mg SUBCUT DAILY [facility] Furosemide (Lasix) 20 mg IVPUSH ONETIME ONE Stop: 09/04/18 12:01 Last Admin: 09/04/18 12:23 Dose: 20 mg Sodium Chloride (Normal Saline) 1,000 mls @ 1,000 mls/hr IV ASDIRECTED [facility] Last Admin: 09/02/18 13:19 Dose: 1,000 mls/hr Ceftriaxone Sodium 2 gm/ (Sodium Chloride) 100 mls @ 200 mls/hr IV ONETIME ONE Stop: 09/02/18 15:37 Last Admin: 09/02/18 17:58 Dose: Not Given Sodium Chloride (Normal Saline) 1,000 mls @ 200 mls/hr IV ONETIME ONE Stop: 09/02/18 20:09 Last Admin: 09/02/18 15:26 Dose: 200 mls/hr Ceftriaxone Sodium 2 gm/ (Sodium Chloride) 100 mls @ 200 mls/hr IV ONETIME ONE Stop: 09/02/18 15:51 Last Admin: 09/02/18 15:27 Dose: 200 mls/hr Ceftriaxone Sodium 2 gm/ (Sodium Chloride) 100 mls @ 200 mls/hr IV Q24H [facility] Last Admin: 09/03/18 09:51 Dose: 200 mls/hr Sodium Chloride (Normal Saline) 1,000 mls @ 150 mls/hr IV ASDIRECTED [facility] Last Admin: 09/04/18 06:50 Dose: 150 mls/hr Magnesium Sulfate 4 gm/ Premix 100 mls @ 25 mls/hr IV ONETIME ONE Stop: 09/03/18 13:59 Last Admin: 09/03/18 11:11 Dose: 25 mls/hr Piperacillin Sod/Tazobactam (Sod 4.5 gm/ Sodium Chloride) 100 mls @ 200 mls/hr IV ONETIME ONE Stop: 09/03/18 18:59 Piperacillin Sod/Tazobactam (Sod 4.5 gm/ Sodium Chloride) 100 mls @ 200 mls/hr IV ONETIME ONE Stop: 09/03/18 18:59 Last Admin: 09/03/18 19:40 Dose: 200 mls/hr Ketorolac Tromethamine (Toradol) 30 mg IVPUSH ONETIME ONE Stop: 09/02/18 12:45 Last Admin: 09/02/18 13:20 Dose: 30 mg Losartan Potassium (Cozaar) 50 mg PO DAILY [facility] Last Admin: 09/03/18 09:52 Dose: Not Given Temazepam (Restoril) 7.5 mg PO BEDTIME PRN PRN Reason: Sleep - Exam General: Alert, Oriented, Cooperative, No Acute Distress HEENT: Pupils Equal, Pupils Reactive, EOMI, Mucous Membr. Moist/[place] Neck: Supple Lungs: Clear to Auscultation, Normal Respiratory Effort Cardiovascular: Regular Rate, Regular Rhythm GI/Abdominal Exam: Normal Bowel Sounds, Soft, Non-Tender, No Organomegaly, No Distention, No Abnormal Bruit, No Mass (Male) Exam: Deferred Back Exam: Normal Inspection, Decreased Range of Motion Extremities: Normal Inspection, Normal Range of Motion, Non-Tender, No Pedal Edema, Normal Capillary Refill Peripheral Pulses: 2+: Dorsalis Pedis (L), Dorsalis Pedis (R) Skin: Warm, Dry, Intact Neurological: No New Focal Deficit Psy/Mental Status: Alert, Normal Affect, Normal Mood - Problem List Review Problem List Initiated/Reviewed/Updated: Yes - Plan Plan:: Assessment/Plan: Acute: Bacteremia * 2/2 E.coli * Blood cultures show gram negative rods, anaerobes * Treated with IV antibiotic; but okay to switch to oral dose * Repeat BCs so far is negative for 24 hrs Prostatitis, Continues to Improve * F/C, Dysuria/urgency * Risk factor: He had a prostate biopsy done yesterday at [place] in [place] by Dr. French, h/o Prostate CA * However, he had Cipro the day before, the day of the procedure and then today * No leukocytosis, CRP 1.1-->11.8--> now 8.2 * Consulted Urologist land lease information clerk Dr. Blackmon at [facility] in ED: * Rocephin started in ED--> then Zosyn and Flagyl: okay to switch to oral medication: He has no allergies to sulfa so okay to start Bactrim DS BID and switch to oral Flagyl (per his request according to [facility] staff) * No indication for flagyl since blood and urine cultures were the same organism; patient agreed to discontinue it on discharge * Bactrim DS 1 tab po BID for a total of 6 weeks treatment (included hospital days) plus oral probiotic L Rotator Cuff Tear * Slipped on water and fell * Dr. Matute diagnosed in [place] * Pt would like second opinion * Consult Dr. Malone, follow up at out patient Resolved: S/p Cough, Resolved * F/C, body aches, cough and sore throat x 3 days * Has had sick contacts with Viral URI, no influenza * No leukocytosis, low grade fever 99.7 in ED, [place] 2.1--> 1.4 * CXR shows nothing acute * Influenza, Mycoplasma negative S/p Hypomagnesemia, Resolved * 1.6-->2.0-->1.9 * Monitor and Replenish PRN Chronic: HTN Prostate CA Appendectomy Plan: He is clinically stable Continue current treatment Routine AM Labs DVT/GI prophylaxis Encourage to ambulate as tolerated Additional orders as above Code Status: Full Code; PCP: Dr. Fernandez Possible discharge in AM is repeat blood culture remains negative LOS > 96 hrs due to slow response to treatment and pending repeat blood culture after 48hrs
[2018-09-06] MEDS ORDERED: Sulfamethoxazole/Trimethoprim 800-160 MG Tab PO ONE (11:28)
[2018-09-06] MEDS: metroNIDAZOLE 500 MG Tab PO SCH ×2 (15:14→21:22)
[2018-09-06] MEDS: Sulfamethoxazole/Trimethoprim 800-160 MG Tab PO SCH (21:22)
[2018-09-06] MEDS: Acetaminophen 325 MG Tab PO PRN (21:29)
--- NOTE | 2018-09-06 21:42 | PCM.CONS ---
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 He has had continued pain as well as weakness in his left shoulder since that time. He denies any previous pain or injury to the left shoulder before this and was able to use a chainsaw and climb trees until this incident happened. He subsequently had an MRI ordered and was set up to see Dr. Matute in [place] but requested us to consult while he is in the hospital for an urelated issue. He denies any numbness or tingling and has tried antiinflammatories with limited success. - Related Data Allergies/Adverse Reactions: Allergies Allergy/AdvReac Type Severity Reaction Status Date / Time ivp dye Allergy Rash Uncoded 09/02/18 17:01 Home Medications: Home Meds Olmesartan Medoxomil 20 mg PO DAILY 09/02/18 [History] Rosuvastatin Calcium 1 dose PO DAILY 09/02/18 [History] Tamsulosin HCl 0.4 mg PO DAILY 09/02/18 [History] Timolol Maleate 1 applic EYEBOTH DAILY 09/02/18 [History] Saccharomyces Boulardii [Florastor] 250 mg PO BID #73 cap 09/06/18 [Rx] Sulfamethoxazole/Trimethoprim [Bactrim Ds Tablet] 1 each PO BID #73 tablet 09/06 [Rx] Past Medical History HEENT History: Reports: Impaired Vision Other HEENT History: glasses Cardiovascular History: Reports: Hypertension Other Musculoskeletal History: Left shoulder rotator cuff injury two weeks ago Oncologic (Cancer) History: Reports: Prostate Other Oncologic History: Prostate biopsy on 09/01/2018 in [facility]. - Past Surgical History GI Surgical History: Reports: Appendectomy Male Surgical History: Reports: Prostate Biopsy Other Male Surgeries/Procedures: prostate cancer Social & Family History - Family History Family Medical History: Noncontributory - Tobacco Use Smoking Status *Q: Never Smoker - Caffeine Use Caffeine Use: Reports: Coffee - Recreational Drug Use Recreational Drug Use: No H&P Review of Systems - Review of Systems: Review Of Systems: ROS reveals no pertinent complaints other than HPI. Exam - Exam Exam: See Below - Vital Signs Vital Signs: Last Vital Signs Temp 36.1 C 09/06/18 17:12 Pulse 66 09/06/18 17:04 Resp 16 09/06/18 17:04 BP 131/97 H 09/06/18 17:04 Pulse Ox 100 09/06/18 17:04 Weight: 100.743 kg - Exam Physical Exam Comments:: neck range of motion WNL LUE: negative spurlings and hoffmans, significant pain and weakness with resisted external rotation as well as empty can testing, no ac joint pain, negative belly press, range of motion is intact with pain, neurovascularly intact to C5-T1 with intact distal pulses - Patient Data Lab Results Last 24 hrs: Laboratory Results - last 24 hr 09/06/18 09/06/18 Range/Units 06:10 06:10 WBC 4.56 (4.23-9.07) K/mm3 RBC 3.77 L (4.63-6.08) M/mm3 Hgb 12.3 L (13.7-17.5) gm/L Hct 35.3 L (40.1-51.0) % MCV 93.6 H (79.0-92.2) fl MCH 32.6 H (25.7-32.2) pg MCHC 34.8 (32.2-35.5) g/dl RDW Std Deviation 42.1 (35.1-43.9) fL Plt Count 128 L (163-337) K/mm3 MPV 9.7 (9.4-12.3) fl Neut % (Auto) 64.9 (34.0-67.9) % Lymph % (Auto) 18.9 L (21.8-53.1) % [place] % (Auto) 12.1 (5.3-12.2) % Eos % (Auto) 3.5 (0.8-7.0) Baso % (Auto) 0.4 (0.1-1.2) % Neut # (Auto) 2.96 (1.78-5.38) K/mm3 Lymph # (Auto) 0.86 L (1.32-3.57) K/mm3 [place] # (Auto) 0.55 (0.30-0.82) K/mm3 Eos # (Auto) 0.16 (0.04-0.54) K/mm3 Baso # (Auto) 0.02 (0.01-0.08) K/mm3 Sodium 137 (136-145) mEq/L Potassium 3.7 (3.5-5.1) mEq/L Chloride 106 (98-107) mEq/L Carbon Dioxide 23 (21-32) mEq/L Anion Gap 11.7 (5-15) BUN 14 (7-18) mg/dL Creatinine 1.2 (0.7-1.3) mg/dL Est Cr Clr Drug Dosing 61.01 mL/min Estimated GFR (MDRD) 60 (>60) mL/min BUN/Creatinine Ratio 11.7 L (14-18) Glucose 96 (80-115) mg/dL Calcium 7.9 L (8.5-10.1) mg/dL Magnesium 1.9 (1.8-2.4) mg/dl C-Reactive Protein 8.2 H* (<1.0) mg/dL Result Diagrams: 09/06/18 06:10 09/06/18 06:10 Anshu Results Last 24 hrs: Microbiology 09/04/18 13:34 Aerobic Blood Culture - Preliminary Blood - Venous - Lab Draw NO GROWTH AFTER 2 DAYS Anaerobic Blood Culture - Preliminary NO GROWTH AFTER 2 DAYS 09/04/18 13:28 Aerobic Blood Culture - Preliminary Blood - Venous NO GROWTH AFTER 2 DAYS Anaerobic Blood Culture - Preliminary NO GROWTH AFTER 2 DAYS 09/02/18 13:29 Aerobic Blood Culture - Preliminary Blood - Venous - Lab Draw NO GROWTH AFTER 4 DAYS Anaerobic Blood Culture - Preliminary NO GROWTH AFTER 4 DAYS 09/02/18 13:14 Aerobic Blood Culture - Preliminary Blood - Venous Escherichia Coli Anaerobic Blood Culture - Preliminary Escherichia Coli 09/05/18 05:05 Aerobic Blood Culture - Preliminary Blood NO GROWTH AFTER 1 DAY Anaerobic Blood Culture - Preliminary NO GROWTH AFTER 1 DAY Consult PN Assessment/Plan Procedures: Procedures AG DETECT NOS IA MULT (08/11/16) ASSAY OF CREATININE (07/28/17) HEP B SURFACE ANTIBODY (08/11/16) HEPATITIS C AB TEST (08/11/16) ROUTINE VENIPUNCTURE (07/28/17) TISSUE EXAM BY PATHOLOGIST (09/18/15) Problem List Initiated/Reviewed/Updated: Yes Plan: A: probable left shoulder traumatic rotator cuff tear P: At this time I do not have access to the MRI but I will have it sent to review. I discussed at this time that I suspect a traumatic rotator cuff tear and if he does not have significant arthritis in the glenohumeral joint I would recommend left shoulder rotator cuff tear as traumatic tears are surgical and have little room for nonsurgical management. I did discuss the lengthy recovery and what it entails at this time. They patient has sepsis at this time so we would have to wait at least 6 weeks from this time or whenever he is asymptomatic and finished with antibotics before considering surgery.
[2018-09-07] MEDS: metroNIDAZOLE 500 MG Tab PO SCH (06:14)
--- NOTE | 2018-09-07 09:00 | PCM.DCSUM1 ---
Discharge Summary - Hospital Course Diagnosis: Stroke: No Modified Tyler Scale: No Symptoms at All Modified Tyler Scale Score: 0 - Discharge Data Discharge Date: 09/07/18 Discharge Disposition: Home, Self-Care 01 Condition: Good - Discharge Diagnosis/Problem(s) (1) Acute bacterial prostatitis SNOMED Code(s): 06292711, 326736273682083 ICD Code: N41.0 - ACUTE PROSTATITIS Status: Acute Current Visit: Yes (2) Bacteremia SNOMED Code(s): 7317605 ICD Code: R78.81 - BACTEREMIA Status: Resolved Priority: High Current Visit: Yes (3) Hypomagnesemia SNOMED Code(s): 585927020 ICD Code: E83.42 - HYPOMAGNESEMIA Status: Resolved Current Visit: Yes (4) Cough in adult SNOMED Code(s): 21795979 ICD Code: R05 - COUGH Status: Resolved Current Visit: Yes (5) Rotator cuff tear arthropathy of left shoulder SNOMED Code(s): 71709526732934492 ICD Code: M75.102 - UNSP ROTATR-CUFF TEAR/RUPTR OF LEFT SHOULDER, NOT TRAUMA ; M12.812 - OTH SPECIFIC ARTHROPATHIES, NEC, LEFT SHOULDER Status: Acute Priority: High Current Visit: Yes - Patient Summary/Data Consults: Consultations 09/03/18 15:06 Consult to Physician [CONS] Routine 09/03/18 15:10 OT Evaluation and Treatment [CONS] Routine PT Evaluation and Treatment [CONS] Routine - Patient Instructions Diet: Usual Diet as Tolerated Activity: As Tolerated Driving: May Drive Today Showering/Bathing: May Shower Notify Provider of: Fever, Increased Pain, Swelling and Redness, Nausea and/or Vomiting Other/Special Instructions: - Please take all new medications as directed. - Resume all home medications and routine home activities as tolerated. - Recommend follow up with Urology after discharge. - Call or follow up with your PCP for any questions or concerns after discharge. - Follow up with your PCP in 2-3 weeks. - Come back or seek immediate care should your symptoms persist or get worse - Discharge Plan *PRESCRIPTION DRUG MONITORING PROGRAM REVIEWED*: Not Applicable *COPY OF PRESCRIPTION DRUG MONITORING REPORT IN PATIENT ELIZA: Not Applicable Prescriptions/Med Rec: Saccharomyces Boulardii [Florastor] 250 mg PO BID #73 cap Sulfamethoxazole/Trimethoprim [Bactrim Ds Tablet] 1 each PO BID #73 tablet Home Medications: Home Meds Olmesartan Medoxomil 20 mg PO DAILY 09/02/18 [History] Rosuvastatin Calcium 1 dose PO DAILY 09/02/18 [History] Tamsulosin HCl 0.4 mg PO DAILY 09/02/18 [History] Timolol Maleate 1 applic EYEBOTH DAILY 09/02/18 [History] Saccharomyces Boulardii [Florastor] 250 mg PO BID #73 cap 09/06/18 [Rx] Sulfamethoxazole/Trimethoprim [Bactrim Ds Tablet] 1 each PO BID #73 tablet 09/06 [Rx] Patient Handouts: Hypomagnesemia, Prostatitis, [id number], Rotator Cuff Tear , Bacteremia Referrals: Reese Gay MD [Primary Care Provider] - - General Info Date of Service: 09/07/18 Admission Dx/Problem (Free Text: Admission Diagnosis/Problem Admission Diagnosis/Problem UTI, Urinary tract infectious disease Subjective Update: Follow Up Functional Status: Reports: Pain Controlled, Tolerating Diet, Ambulating, Urinating. Denies: New Symptoms - Patient Data Vitals - Most Recent: Last Vital Signs Temp 36.7 C 09/07/18 06:20 Pulse 62 09/07/18 06:20 Resp 18 09/07/18 06:20 BP 160/95 H 09/07/18 06:20 Pulse Ox 95 09/07/18 06:20 Weight - Most Recent: 101.151 kg I&O - Last 24 hours: Intake & Output 09/06/18 09/07/18 09/07/18 22:59 06:59 14:59 Intake Total 780 800 Balance 780 800 Lab Results - Last 24 hrs: Laboratory Results - last 24 hr 09/07/18 09/07/18 Range/Units 05:39 05:39 WBC 6.22 (4.23-9.07) K/mm3 RBC 3.87 L (4.63-6.08) M/mm3 Hgb 12.5 L (13.7-17.5) gm/L Hct 35.9 L (40.1-51.0) % MCV 92.8 H (79.0-92.2) fl MCH 32.3 H (25.7-32.2) pg MCHC 34.8 (32.2-35.5) g/dl RDW Std Deviation 41.9 (35.1-43.9) fL Plt Count 153 L (163-337) K/mm3 MPV 9.7 (9.4-12.3) fl Neut % (Auto) 61.4 (34.0-67.9) % Lymph % (Auto) 22.7 (21.8-53.1) % [place] % (Auto) 9.6 (5.3-12.2) % Eos % (Auto) 5.1 (0.8-7.0) Baso % (Auto) 1.0 (0.1-1.2) % Neut # (Auto) 3.82 (1.78-5.38) K/mm3 Lymph # (Auto) 1.41 (1.32-3.57) K/mm3 [place] # (Auto) 0.60 (0.30-0.82) K/mm3 Eos # (Auto) 0.32 (0.04-0.54) K/mm3 Baso # (Auto) 0.06 (0.01-0.08) K/mm3 Manual Slide Review Abnormal smear Sodium 137 (136-145) mEq/L Potassium 3.7 (3.5-5.1) mEq/L Chloride 106 (98-107) mEq/L Carbon Dioxide 22 (21-32) mEq/L Anion Gap 12.7 (5-15) BUN 17 (7-18) mg/dL Creatinine 1.1 (0.7-1.3) mg/dL Est Cr Clr Drug Dosing 66.55 mL/min Estimated GFR (MDRD) > 60 (>60) mL/min BUN/Creatinine Ratio 15.5 (14-18) Glucose 88 (80-115) mg/dL Calcium 8.6 (8.5-10.1) mg/dL Magnesium 2.0 (1.8-2.4) mg/dl C-Reactive Protein 5.1 H* (<1.0) mg/dL [place] Results - Last 24 hrs: Microbiology 09/05/18 05:05 Aerobic Blood Culture - Preliminary Blood NO GROWTH AFTER 2 DAYS Anaerobic Blood Culture - Preliminary NO GROWTH AFTER 2 DAYS 09/04/18 13:34 Aerobic Blood Culture - Preliminary Blood - Venous - Lab Draw NO GROWTH AFTER 2 DAYS Anaerobic Blood Culture - Preliminary NO GROWTH AFTER 2 DAYS 09/04/18 13:28 Aerobic Blood Culture - Preliminary Blood - Venous NO GROWTH AFTER 2 DAYS Anaerobic Blood Culture - Preliminary NO GROWTH AFTER 2 DAYS 09/02/18 13:29 Aerobic Blood Culture - Preliminary Blood - Venous - Lab Draw NO GROWTH AFTER 4 DAYS Anaerobic Blood Culture - Preliminary NO GROWTH AFTER 4 DAYS 09/02/18 13:14 Aerobic Blood Culture - Preliminary Blood - Venous Escherichia Coli Anaerobic Blood Culture - Preliminary Escherichia Coli Med Orders - Current: Current Medications Acetaminophen (Tylenol) 650 mg PO Q4H PRN PRN Reason: Pain (Mild 1-3)/fever Last Admin: 09/06/18 21:29 Dose: 650 mg Albuterol (Proventil Neb Soln) 2.5 mg NEB Q2H PRN PRN Reason: Shortness Of Breath/wheezing Albuterol/Ipratropium (Duoneb 3.0-0.5 Mg/3 Ml) 3 ml NEB Q4H PRN PRN Reason: Shortness Of Breath/wheezing Last Admin: 09/06/18 21:41 Dose: 3 ml Benzonatate (Tessalon Perles) 200 mg PO TID PRN PRN Reason: Cough Bisacodyl (Dulcolax) 5 mg PO DAILY PRN PRN Reason: Constipation Docusate Sodium (Colace) 100 mg PO BID PRN PRN Reason: Constipation Famotidine (Pepcid) 20 mg PO BID [facility] Last Admin: 09/06/18 21:22 Dose: 20 mg Hydralazine HCl (Apresoline) 10 mg IVPUSH Q4H PRN PRN Reason: Hypertension Ketorolac Tromethamine (Toradol) 30 mg IV Q6H PRN PRN Reason: Pain (moderate 4-6) Last Admin: 09/03/18 12:53 Dose: 30 mg Magnesium Hydroxide (Milk Of Magnesia) 30 ml PO Q12H PRN PRN Reason: Constipation Metoprolol Tartrate (Lopressor) 5 mg IVPUSH Q4H PRN PRN Reason: Tachycardia Metronidazole (Flagyl) 500 mg PO TID@0700,1400,2100 [facility] Last Admin: 09/07/18 06:14 Dose: 500 mg Olmesartan 20 Mg Tab (*Pt Own Med*) 0 each PO DAILY [facility] Last Admin: 09/06/18 08:22 Dose: 1 each Ondansetron HCl (Zofran Odt) 4 mg PO Q4H PRN PRN Reason: nausea, able to take PO Ondansetron HCl (Zofran) 4 mg IV Q4H PRN PRN Reason: Nausea/Vomiting Polyethylene Glycol (Miralax) 17 gm PO DAILY PRN PRN Reason: Constipation Rosuvastatin Calcium (Crestor) 10 mg PO DAILY [facility] Last Admin: 09/06/18 08:22 Dose: 10 mg Saccharomyces Boulardii (Florastor) 250 mg PO BID [facility] Last Admin: 09/06/18 21:22 Dose: 250 mg Senna/Docusate Sodium (Senna Plus) 1 tab PO BID PRN PRN Reason: Constipation Sodium Chloride (Saline Flush) 10 ml FLUSH ASDIRECTED PRN PRN Reason: Keep Vein Open Last Admin: 09/02/18 13:19 Dose: 10 ml Tamsulosin HCl (Flomax) 0.4 mg PO DAILY [facility] Last Admin: 09/06/18 08:22 Dose: 0.4 mg Temazepam (Restoril) 15 mg PO BEDTIME PRN PRN Reason: Sleep Last Admin: 09/04/18 22:13 Dose: 15 mg Timolol Maleate (Timoptic 0.5% Ophth Soln) 0 ml EYEBOTH DAILY [facility] Last Admin: 09/06/18 08:22 Dose: 1 drop Trimethoprim/Sulfamethoxazole (Septra Ds) 1 tab PO BID [facility] Last Admin: 09/06/18 21:22 Dose: 1 tab Discontinued Medications Enoxaparin Sodium (Lovenox) 40 mg SUBCUT DAILY [facility] Furosemide (Lasix) 20 mg IVPUSH ONETIME ONE Stop: 09/04/18 12:01 Last Admin: 09/04/18 12:23 Dose: 20 mg Sodium Chloride (Normal Saline) 1,000 mls @ 1,000 mls/hr IV ASDIRECTED [facility] Last Admin: 09/02/18 13:19 Dose: 1,000 mls/hr Ceftriaxone Sodium 2 gm/ (Sodium Chloride) 100 mls @ 200 mls/hr IV ONETIME ONE Stop: 09/02/18 15:37 Last Admin: 09/02/18 17:58 Dose: Not Given Sodium Chloride (Normal Saline) 1,000 mls @ 200 mls/hr IV ONETIME ONE Stop: 09/02/18 20:09 Last Admin: 09/02/18 15:26 Dose: 200 mls/hr Ceftriaxone Sodium 2 gm/ (Sodium Chloride) 100 mls @ 200 mls/hr IV ONETIME ONE Stop: 09/02/18 15:51 Last Admin: 09/02/18 15:27 Dose: 200 mls/hr Ceftriaxone Sodium 2 gm/ (Sodium Chloride) 100 mls @ 200 mls/hr IV Q24H [facility] Last Admin: 09/03/18 09:51 Dose: 200 mls/hr Sodium Chloride (Normal Saline) 1,000 mls @ 150 mls/hr IV ASDIRECTED [facility] Last Admin: 09/04/18 06:50 Dose: 150 mls/hr Magnesium Sulfate 4 gm/ Premix 100 mls @ 25 mls/hr IV ONETIME ONE Stop: 09/03/18 13:59 Last Admin: 09/03/18 11:11 Dose: 25 mls/hr Metronidazole 500 mg/ Premix 100 mls @ 100 mls/hr IV Q8H [facility] Last Admin: 09/06/18 12:23 Dose: Not Given Piperacillin Sod/Tazobactam (Sod 4.5 gm/ Sodium Chloride) 100 mls @ 25 mls/hr IV Q8H [facility] Last Admin: 09/06/18 12:23 Dose: Not Given Piperacillin Sod/Tazobactam (Sod 4.5 gm/ Sodium Chloride) 100 mls @ 200 mls/hr IV ONETIME ONE Stop: 09/03/18 18:59 Last Admin: 09/06/18 19:46 Dose: Not Given Piperacillin Sod/Tazobactam (Sod 4.5 gm/ Sodium Chloride) 100 mls @ 200 mls/hr IV ONETIME ONE Stop: 09/03/18 18:59 Last Admin: 09/03/18 19:40 Dose: 200 mls/hr Ketorolac Tromethamine (Toradol) 30 mg IVPUSH ONETIME ONE Stop: 09/02/18 12:45 Last Admin: 09/02/18 13:20 Dose: 30 mg Losartan Potassium (Cozaar) 50 mg PO DAILY [facility] Last Admin: 09/03/18 09:52 Dose: Not Given Temazepam (Restoril) 7.5 mg PO BEDTIME PRN PRN Reason: Sleep Trimethoprim/Sulfamethoxazole (Septra Ds) 1 tab PO ONETIME ONE Stop: 09/06/18 11:29 Last Admin: 09/06/18 12:25 Dose: 1 tab
[2018-09-07] MEDS: Rosuvastatin 10 MG Tab PO SCH (09:16)
[2018-09-07] MEDS: Tamsulosin 0.4 MG Cap.ER PO SCH (09:16)
[2018-09-07] MEDS: Saccharomyces Boulardii (Probiotic) 250 MG Cap PO SCH (09:16)
[2018-09-07] MEDS: Famotidine 20 MG Tab PO SCH (09:16)
[2018-09-07] MEDS: Sulfamethoxazole/Trimethoprim 800-160 MG Tab PO SCH (09:16)
[2018-09-07] MEDS: Timolol Maleate 0.5% Ophth Soln 5 ML Bottle EYEBOTH SCH (09:17)
== END 2018-09-07 09:44 | disposition home or self-care (01) | DRG 862 ==
LOC: JD.ED 12:23 → JD.MS 15:56
PROVIDERS: ADMIT Internal Medicine Cardiovascular Disease; ATTEND Internal Medicine Cardiovascular Disease
DX: T81.44XA Sepsis following a procedure, initial encounter (principal); A41.51 Sepsis due to Escherichia coli [E. coli]; N41.0 Acute prostatitis; N39.0 Urinary tract infection, site not specified; Y84.8 Other medical procedures as the cause of abnormal reaction of the patient, or of later complication, without mention of misadventure at the time of the procedure; B96.89 Other specified bacterial agents as the cause of diseases classified elsewhere; E83.42 Hypomagnesemia; H54.7 Unspecified visual loss; I10 Essential (primary) hypertension; C61 Malignant neoplasm of prostate; S46.012A Strain of muscle(s) and tendon(s) of the rotator cuff of left shoulder, initial encounter; W19.XXXA Unspecified fall, initial encounter; M19.012 Primary osteoarthritis, left shoulder; R05 Cough; Z91.041 Radiographic dye allergy status; Z79.899 Other long term (current) drug therapy
CPT/HCPCS: 36415; 51798; 71046; 71046-26; 80048; 80053; 81001; 83605; 83735; 85025; 86140; 86738; 87040; 87077; 87086; 87088; 87186; 87804; 94640; 94760; 96361; 96365; 96375; 99284; 99284-25; A9270-GY; J0696; J1885; J2543; J3475; J3490; J7030; J7040; J7620-GY

== ENCOUNTER 2022-07-31 20:28 | Emergency (ER) | payer MEDICARE, BC ==
[2022-07-31] MEDS ORDERED: Lidocaine 2% 11 ML Jelly Filled Syringe ONE (21:17)
[2022-07-31 21:34] LABS: ESTIMATED GFR 58 mL/min (>60)
[2022-07-31] MEDS ORDERED: Sulfamethoxazole/Trimethoprim 800-160 MG Tab PO ONE (22:26)
== END 2022-07-31 22:36 | disposition home or self-care (01) ==
LOC: SUPCPDRO 20:28 → JD.ED 20:28
DX: R33.9 Retention of urine, unspecified (principal); I10 Essential (primary) hypertension; Z79.899 Other long term (current) drug therapy; Z91.041 Radiographic dye allergy status
CPT/HCPCS: 36415; 51702; 80053; 81001; 85025; 99283; A9270

== ENCOUNTER → 2024-05-23 | Day surgery (SDC) | payer MEDICARE ==
[~2024-05-23] MED LIST: Ketorolac 15 MG/ML SDV ONE; Lidocaine 1% 5 ML VIAL ONE; Propofol 200 MG/20 ML SDV ONE; Sodium Chloride 0.9% 10 ML Syringe FLUSH PRN; Sodium Chloride 0.9% 10 ML Syringe FLUSH SCH; ceFAZolin 2 GM Vial ONE; fentaNYL 100 MCG/2 ML SDV ONE
[2024-05-23] MEDS: Lactated Ringers 1,000 ML IV SCH (06:30)
[2024-05-23] MEDS: Bupivacaine 0.25% 10 ML SDV ONE (07:05)
[2024-05-23] MEDS: Lidocaine 1% 10 ML MDV ONE (07:05)
== END | disposition home or self-care (01) ==
LOC: JD.SDS 06:15
PROVIDERS: ATTEND Orthopaedic Surgery
DX: G56.01 Carpal tunnel syndrome, right upper limb (principal); M65.311 Trigger thumb, right thumb; I10 Essential (primary) hypertension; E78.2 Mixed hyperlipidemia; C61 Malignant neoplasm of prostate; Z79.899 Other long term (current) drug therapy; Z79.82 Long term (current) use of aspirin
CPT/HCPCS: 26055; 64721; J0665; J0690; J1885; J2704; J3010; J7120; J3490

== ENCOUNTER 2024-08-02 08:12 | Day surgery (SDC) | payer MEDICARE ==
[~2024-08-02 08:12] MED LIST changes: -Ketorolac 15 MG/ML SDV ONE; -Lidocaine 1% 5 ML VIAL ONE; -Propofol 200 MG/20 ML SDV ONE; -ceFAZolin 2 GM Vial ONE; -fentaNYL 100 MCG/2 ML SDV ONE
[2024-08-02] MEDS: Lactated Ringers 1,000 ML IV SCH (08:30)
[2024-08-02] MEDS ORDERED: Propofol 200 MG/20 ML SDV ONE (08:47)
[2024-08-02] MEDS ORDERED: Lidocaine 1% 4 ML ONE (08:47)
== END 2024-08-02 10:35 ==
LOC: JD.SDS 08:12
PROVIDERS: ATTEND Surgery
DX: Z12.11 Encounter for screening for malignant neoplasm of colon (principal); D12.2 Benign neoplasm of ascending colon; K64.0 First degree hemorrhoids; K57.30 Diverticulosis of large intestine without perforation or abscess without bleeding; I10 Essential (primary) hypertension; Z86.0101 Personal history of adenomatous and serrated colon polyps
CPT/HCPCS: 00811; 45380; 88305; 99100; J2704; J3490; J7120

== ENCOUNTER 2025-01-02 06:15 | Day surgery (SDC) | payer MEDICARE ==
[2025-01-02] MEDS ORDERED: Lactated Ringers 1,000 ML IV ONE (06:16)
[2025-01-02] MEDS ORDERED: Lidocaine 1% 4 ML ONE (06:36)
[2025-01-02] MEDS ORDERED: Propofol 200 MG/20 ML SDV ONE (06:37)
[2025-01-02] MEDS: Lidocaine 1% 10 ML MDV ONE (07:09)
[2025-01-02] MEDS: Bupivacaine 0.25% 10 ML SDV ONE (07:09)
== END 2025-01-02 08:00 | disposition home or self-care (01) ==
LOC: JD.SDS 06:15
PROVIDERS: ATTEND Orthopaedic Surgery
DX: G56.12 Other lesions of median nerve, left upper limb (principal); G56.01 Carpal tunnel syndrome, right upper limb; J45.909 Unspecified asthma, uncomplicated; I10 Essential (primary) hypertension; Z79.899 Other long term (current) drug therapy
CPT/HCPCS: 64721; J0665; J2003; J2704; J7120; 01810; 99100